=== PATIENT | male | born 1945 | race Caucasian/White ===

== ENCOUNTER 2021-02-19 16:33 | Inpatient (IN) ==
[2021-02-19] MEDS ORDERED: OPTIRAY 350 500ml IV ONE (17:10)
[2021-02-19 17:13] LABS: Basophils # (auto) 0.02 K/uL (0-0.2); Basophils % (auto) 0.2 %; Eosinophils # (auto) 0.01 K/uL (0-0.5); Eosinophils % (auto) 0.1 %; Hematocrit (blood only) 37.7 % (42-52); Hemoglobin 12.3 g/dL (14.0-18.0); Immature Granulocytes # (auto) 0.03 K/uL (0.00-0.02); Immature Granulocytes % (auto) 0.2 %; Lymphocytes # (auto) 1.64 K/uL (1.2-3.4); Lymphocytes % (auto) 13.7 %; Mean Corpuscular Hemoglobin 30.4 pg (25-34); Mean Corpuscular Hgb Conc 32.6 g/dL (32-36); Mean Corpuscular Volume 93.3 fL (80-100); Mean Platelet Volume 9.7 fL (7.4-10.4); Monocytes # (auto) 0.74 K/uL (0.11-0.59); Monocytes % (auto) 6.2 %; Neutrophils # (auto) 9.57 K/uL (1.4-6.5); Neutrophils % (auto) 79.6 %; Platelet Count 516 K/uL (130-400); RDW Standard Deviation 47.9 fL (36.4-46.3); Red Blood Count 4.04 M/uL (4.7-6.1); White Blood Count 12.01 K/uL (4.8-10.8)
--- NOTE | 2021-02-19 17:22 | Emergency Department Note ---
History of Present Illness General Chief complaint: Neuro Symptoms/Deficit Stated complaint: ABNORMAL EKG Time Seen by Provider: 02/19/21 16:53 Source: patient, family (Friend is at the bedside) and old records reviewed Mode of arrival: ambulatory Limitations: no limitations History of Present Illness Maximum Pain Intensity: 0 This patient is a 75-year-old male who comes in complaint of right hand weakness. Is from the wrist downward. He is a diabetic. This happened around 1130. He says his right hand is weak and numb. He has nothing else above the wrist and the elbow and shoulder are unremarkable. No weakness or numbness in the face or leg. No difficulty speaking or swallowing. No fall or trauma no chest pain or neck pain. He has had some chronic shortness of breath for the last several weeks for which he is on steroids. He had his Covid vaccines finished in November. He has had a cough but no fever. No history of anything like this before. His blood sugar has run on the high side given that he has been on steroids. He is from [place] and is in town for a meeting Home Medications Medication Instructions Recorded Confirmed Type albuterol sulfate 1 - 2 puff INHALATION Q4H PRN 02/19/21 02/19/21 History amoxicillin-pot clavulanate 1 tab PO BID 02/19/21 02/19/21 History [Augmentin] azithromycin 250 mg PO DAILY 02/19/21 02/19/21 History furosemide [Lasix] 40 mg PO DAILY 02/19/21 02/19/21 History insulin glargine [Lantus Solostar 40 unit SUBCUT QPM 02/19/21 02/19/21 History U-100 Insulin] lisinopril 40 mg PO DAILY 02/19/21 02/19/21 History metformin 1,000 mg PO BIDM 02/19/21 02/19/21 History pioglitazone [Actos] 15 mg PO DAILY 02/19/21 02/19/21 History prednisone See Rx Instructions .ROUTE .COMPLEX 02/19/21 02/19/21 History simvastatin 40 mg PO HS 02/19/21 02/19/21 History Allergies Allergy/AdvReac Type Severity Reaction Status Date / Time No Known Allergies Allergy Verified 02/19/21 17:40 Past Med/Surg History Social History Smoking Status: Never smoker Preferred Language: Guatemalan Feels Safe at Home: Yes Review of Systems A total of 10 systems reviewed and were otherwise negative Physical Exam Vital Signs Vital Signs - 24 hr 02/19/21 16:39 02/19/21 17:03 02/19/21 17:39 Temperature 36.3 C L Temperature Source Temporal Artery Scan Pulse Rate 112 H 110 H 107 H Pulse Rate from SpO2 Sensor 110 H 107 H Respiratory Rate 18 20 18 Respiratory Effort / Characteristics Non-Labored Respiratory Depth Normal Blood Pressure 116/71 122/74 128/81 Blood Pressure Mean 86 90 96 Pulse Oximetry 96 97 99 Oxygen Delivery Method Room Air Sepsis Recent Fever Within 48 Hours No Sepsis New/Unexplained Change in Mental Status No Sepsis Action Taken by Nursing No Action Required 02/19/21 17:40 02/19/21 17:45 02/19/21 17:50 Temperature Temperature Source Pulse Rate 106 H 105 H 106 H Pulse Rate from SpO2 Sensor 106 H 105 H 106 H Respiratory Rate 18 Respiratory Effort / Characteristics Respiratory Depth Blood Pressure 139/82 122/79 127/77 Blood Pressure Mean 101 93 93 Pulse Oximetry 98 99 98 Oxygen Delivery Method Sepsis Recent Fever Within 48 Hours Sepsis New/Unexplained Change in Mental Status Sepsis Action Taken by Nursing 02/19/21 17:55 02/19/21 18:00 02/19/21 18:05 Temperature Temperature Source Pulse Rate 107 H 106 H 105 H Pulse Rate from SpO2 Sensor 107 H 106 H 105 H Respiratory Rate Respiratory Effort / Characteristics Respiratory Depth Blood Pressure 99/75 L 127/75 95/73 L Blood Pressure Mean 83 92 80 Pulse Oximetry 97 97 97 Oxygen Delivery Method Sepsis Recent Fever Within 48 Hours Sepsis New/Unexplained Change in Mental Status Sepsis Action Taken by Nursing 02/19/21 18:30 02/19/21 18:34 02/19/21 18:40 Temperature Temperature Source Pulse Rate 102 H 103 H 101 H Pulse Rate from SpO2 Sensor Respiratory Rate 25 H 22 22 Respiratory Effort / Characteristics Respiratory Depth Blood Pressure 118/79 Blood Pressure Mean 92 Pulse Oximetry Oxygen Delivery Method Sepsis Recent Fever Within 48 Hours Sepsis New/Unexplained Change in Mental Status Sepsis Action Taken by Nursing 02/19/21 18:50 02/19/21 19:00 02/19/21 19:01 Temperature Temperature Source Pulse Rate 104 H 97 H 99 H Pulse Rate from SpO2 Sensor Respiratory Rate 22 18 19 Respiratory Effort / Characteristics Respiratory Depth Blood Pressure 108/68 Blood Pressure Mean 81 Pulse Oximetry Oxygen Delivery Method Sepsis Recent Fever Within 48 Hours Sepsis New/Unexplained Change in Mental Status Sepsis Action Taken by Nursing 02/19/21 19:10 02/19/21 19:20 02/19/21 19:30 Temperature Temperature Source Pulse Rate 94 H 93 H 95 H Pulse Rate from SpO2 Sensor Respiratory Rate 18 21 21 Respiratory Effort / Characteristics Respiratory Depth Blood Pressure 107/74 Blood Pressure Mean 85 Pulse Oximetry Oxygen Delivery Method Sepsis Recent Fever Within 48 Hours Sepsis New/Unexplained Change in Mental Status Sepsis Action Taken by Nursing 02/19/21 19:31 02/19/21 19:54 02/19/21 20:00 Temperature Temperature Source Pulse Rate 106 H 108 H 113 H Pulse Rate from SpO2 Sensor Respiratory Rate 25 H 13 18 Respiratory Effort / Characteristics Respiratory Depth Blood Pressure Blood Pressure Mean Pulse Oximetry Oxygen Delivery Method Sepsis Recent Fever Within 48 Hours Sepsis New/Unexplained Change in Mental Status Sepsis Action Taken by Nursing General: Well developed well nourished older male who appears in no acute distress, breathing comfortably on room air. Normal speech alert on x3, no facial asymmetry or droop HEENT: Normal cephalic atraumatic. Pupils are equal round and reactive to light. Extraocular movements are intact. Oropharynx is pink with moist mucous membranes. No swelling of the mouth lips or tongue. Neck: Supple with a midline trachea. No meningeal signs or stiffness, no JVD or bruits. No Stridor. Chest: Clear to auscultation bilaterally. No wheezes or rhonchi. No increased work of breathing. Heart: Regular rate and rhythm without murmurs or gallops. Abdomen: Soft nontender, nondistended without rebound guarding or rigidity. Extremities: No cyanosis clubbing or edema. No calf tenderness or assymetry Spine/Back. Non tender to palpation. No CVA tenderness Skin: Good turgor without rashes. Neurologic exam: Cranial nerves two through 12 are intact. 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 To lesser degree he has a hard time extending at the wrist but it is mostly the hand he is holding it somewhat clenched and is unable to extend the fingers as well. His hand is pink and well-perfused appearing with good capillary refill Course Administered Medications Discontinued Medications Aspirin (Aspirin 81 Mg Chew) 324 mg PO NOW STA Stop: 02/19/21 18:07 Last Admin: 02/19/21 18:26 Dose: 324 mg Documented by: [id number] Ioversol (Optiray 350 500ml) 120 ml IV ONCE ONE Stop: 02/19/21 17:11 Last Admin: 02/19/21 17:10 Dose: 120 ml Documented by: [id number] Medical Decision Making Differential Diagnosis CVA, peripheral neuropathy, diabetic complication, cardiac disease, electrolyte or metabolic abnormality Medical Records Attestation: I reviewed the patient's medical records. Home Medications Current Medication List: was personally reviewed by me Laboratory Data Attestation: I reviewed the patient's lab results. Result diagrams: 02/19/21 17:05 02/19/21 17:05 Lab Results 02/19/21 02/19/21 02/19/21 Range/Units 17:05 17:05 17:05 WBC 12.01 H (4.8-10.8) K/uL RBC 4.04 L (4.7-6.1) M/uL Hgb 12.3 L (14.0-18.0) g/dL Hct 37.7 L (42-52) % MCV 93.3 (80-100) fL MCH 30.4 (25-34) pg MCHC 32.6 (32-36) g/dL RDW Std Deviation 47.9 H (36.4-46.3) fL RDW Coeff of Fabian 14.0 (11.5-14.5) % Plt Count 516 H (130-400) K/uL MPV 9.7 (7.4-10.4) fL Immature Gran % (Auto) 0.2 % Neut % (Auto) 79.6 % Lymph % (Auto) 13.7 % Davis % (Auto) 6.2 % Eos % (Auto) 0.1 % Baso % (Auto) 0.2 % Neut # (Auto) 9.57 H (1.4-6.5) K/uL Lymph # (Auto) 1.64 (1.2-3.4) K/uL Davis # (Auto) 0.74 H (0.11-0.59) K/uL Eos # (Auto) 0.01 (0-0.5) K/uL Baso # (Auto) 0.02 (0-0.2) K/uL Immature Gran # (Auto) 0.03 H (0.00-0.02) K/uL PT 10.9 (9.0-12.0) Seconds INR 1.1 (0.9-1.1) APTT 23.7 (21.0-31.0) Seconds PTT Ratio 0.9 Sodium 138 (136-145) mmol/L Potassium 4.5 (3.5-5.1) mmol/L Chloride 108 H (98-107) mmol/L Carbon Dioxide 22 (21-32) mmol/L Anion Gap 8.0 (3-11) BUN 48 H (7-18) mg/dl Creatinine 1.80 H (0.6-1.4) mg/dl Est Cr Clr Drug Dosing 45.6 ml/min Est GFR ( Amer) 42.0 ml/min Est GFR (Non-Af Amer) 36.3 ml/min BUN/Creatinine Ratio 26.6 H (10-20) Glucose 168 H (70-99) mg/dl POC Glucose (70-99) mg/dl Calcium 9.3 (8.5-10.1) mg/dl Magnesium 2.0 (1.8-2.4) mg/dl Total Bilirubin 0.4 (0.2-1) mg/dl AST 27 (15-37) U/L ALT 51 (12-78) U/L Alkaline Phosphatase 106 (45-117) U/L Troponin I 0.255 H* (0-0.045) ng/ml Total Protein 7.5 (6.4-8.2) gm/dl Albumin 3.4 (3.4-5.0) gm/dl Globulin 4.1 H (2.5-4.0) gm/dl Albumin/Globulin Ratio 0.8 L (0.9-2) COVID-19 Eval Order SARS-CoV-2 (PCR) (Negative) 02/19/21 02/19/21 02/19/21 Range/Units 17:31 17:35 17:35 WBC (4.8-10.8) K/uL RBC (4.7-6.1) M/uL Hgb (14.0-18.0) g/dL Hct (42-52) % MCV (80-100) fL MCH (25-34) pg MCHC (32-36) g/dL RDW Std Deviation (36.4-46.3) fL RDW Coeff of Fabian (11.5-14.5) % Plt Count (130-400) K/uL MPV (7.4-10.4) fL Immature Gran % (Auto) % Neut % (Auto) % Lymph % (Auto) % Davis % (Auto) % Eos % (Auto) % Baso % (Auto) % Neut # (Auto) (1.4-6.5) K/uL Lymph # (Auto) (1.2-3.4) K/uL Davis # (Auto) (0.11-0.59) K/uL Eos # (Auto) (0-0.5) K/uL Baso # (Auto) (0-0.2) K/uL Immature Gran # (Auto) (0.00-0.02) K/uL PT (9.0-12.0) Seconds INR (0.9-1.1) APTT (21.0-31.0) Seconds PTT Ratio Sodium (136-145) mmol/L Potassium (3.5-5.1) mmol/L Chloride (98-107) mmol/L Carbon Dioxide (21-32) mmol/L Anion Gap (3-11) BUN (7-18) mg/dl Creatinine (0.6-1.4) mg/dl Est Cr Clr Drug Dosing ml/min Est GFR ( Amer) ml/min Est GFR (Non-Af Amer) ml/min BUN/Creatinine Ratio (10-20) Glucose (70-99) mg/dl POC Glucose 148 H (70-99) mg/dl Calcium (8.5-10.1) mg/dl Magnesium (1.8-2.4) mg/dl Total Bilirubin (0.2-1) mg/dl AST (15-37) U/L ALT (12-78) U/L Alkaline Phosphatase (45-117) U/L Troponin I (0-0.045) ng/ml Total Protein (6.4-8.2) gm/dl Albumin (3.4-5.0) gm/dl Globulin (2.5-4.0) gm/dl Albumin/Globulin Ratio (0.9-2) COVID-19 Eval Order Covid19 at [facility] SARS-CoV-2 (PCR) NEGATIVE (Negative) Imaging Data Radiologist's Impression: Head CT 02/19/21 17:[address] DOSE: HISTORY: Stroke Like Symptoms TECHNIQUE: Multiaxial CT images of the head were performed without the use of intravenous contrast. Automated exposure control was utilized for this study. A dose lowering technique was utilized adhering to the principles of ALARA. Comparison: None. Findings: The paranasal sinuses and mastoid air cells are clear. The calvarium and skull base are intact. There is no mass, hematoma, midline shift, acute infarct. White matter hypodensity is nonspecific but suggestive of microvascular ischemic change. The ventricles and sulci demonstrate mild age-related involutional changes. Impression: No acute intracranial abnormality. Atrophy and microvascular ischemic changes. ACT 112: Negative or not required by law. Electronically signed by: Casimiro Soto M.D. 02/19/2021 5:30 PM Head CTA 02/19/21 17:04 HEAD & NECK CTA HISTORY: Stroke Like Symptoms TECHNIQUE: Multiaxial CT images of the head were performed following the intravenous administration of contrast to evaluate the major cerebral vessels. Multiaxial CT images of the neck were also performed following the intravenous administration of contrast to evaluate the major cervical vessels. Maximum intensity projection images were also obtained. A dose lowering technique was utilized adhering to the principles of ALARA. COMPARISON: None. FINDINGS: Moderate calcified plaque within the bilateral distal vertebral arteries resolving and mild stenosis within the distal left vertebral artery and severe stenosis within the distal right vertebral artery. The basilar artery is widely patent. Mild stenosis within the right supraclinoid ICA due to the focal calcified plaque. No significant stenosis within the left intracranial ICA. The bilateral ACAs, MCAs, laborer landscape show no significant stenosis, occlusion, or aneurysm. The major dural venous sinuses appear patent. The aortic arch and proximal great vessels are widely patent. There is no significant stenosis, occlusion, or dissection identified within the bilateral common carotid, internal carotid, or vertebral arteries. Mild interlobular septal thickening and small patchy groundglass airspace opacities most pronounced within the right upper lobe. There are also small to moderate bilateral pleural effusions. This favors pulmonary edema. Groundglass airspace opacities, also be seen in the setting of a viral process. IMPRESSION: 1. No significant stenosis, occlusion, or aneurysm within the bilateral ACAs, MC As, or laborer landscape. 2. Mild stenosis within the right supraclinoid ICA due to the calcified plaque. 3. Focal severe stenosis within the distal right vertebral artery due to the calcified plaque and focal mild stenosis within the distal left vertebral artery. 4. No significant stenosis, occlusion, or dissection within the bilateral common carotid or internal carotid arteries. ACT 112: Negative or not required by law. Electronically signed by: Casimiro Soto M.D. 02/19/2021 5:28 PM Neck CTA 02/19/21 17:04 HEAD & NECK CTA HISTORY: Stroke Like Symptoms TECHNIQUE: Multiaxial CT images of the head were performed following the intravenous administration of contrast to evaluate the major cerebral vessels. Multiaxial CT images of the neck were also performed following the intravenous administration of contrast to evaluate the major cervical vessels. Maximum intensity projection images were also obtained. A dose lowering technique was utilized adhering to the principles of ALARA. COMPARISON: None. FINDINGS: Moderate calcified plaque within the bilateral distal vertebral arteries resolving and mild stenosis within the distal left vertebral artery and severe stenosis within the distal right vertebral artery. The basilar artery is widely patent. Mild stenosis within the right supraclinoid ICA due to the focal calcified plaque. No significant stenosis within the left intracranial ICA. The bilateral ACAs, MCAs, laborer landscape show no significant stenosis, occlusion, or aneurysm. The major dural venous sinuses appear patent. The aortic arch and proximal great vessels are widely patent. There is no significant stenosis, occlusion, or dissection identified within the bilateral common carotid, internal carotid, or vertebral arteries. Mild interlobular septal thickening and small patchy groundglass airspace opacities most pronounced within the right upper lobe. There are also small to moderate bilateral pleural effusions. This favors pulmonary edema. Groundglass airspace opacities, also be seen in the setting of a viral process. IMPRESSION: 1. No significant stenosis, occlusion, or aneurysm within the bilateral ACAs, MCAs, or laborer landscape. 2. Mild stenosis within the right supraclinoid ICA due to the calcified plaque. 3. Focal severe stenosis within the distal right vertebral artery due to the calcified plaque and focal mild stenosis within the distal left vertebral artery. 4. No significant stenosis, occlusion, or dissection within the bilateral common carotid or internal carotid arteries. ACT 112: Negative or not required by law. Electronically signed by: Casimiro Soto M.D. 02/19/2021 5:28 PM ECG Data Attestation: I personally reviewed and interpreted this ECG as follows: Indication: + weakness Rate (beats per minute): 113 Rhythm: + sinus tachycardia ECG [place]: + Normal ECG ST segments: + Nonspecific ST abnormalities (Nonspecific ST and T wave abnormalities.) ECG Findings: no PACs and no PVCs Comparison ECG Date: from (EKG done at [facility]) Change: no significant change MDM Narrative This patient comes in after weakness in his right hand. This occurred at 1130. He has a hard time squeezing and to lesser degree extending the wrist. No injury. He was seen at [facility] and referred here. When I saw him he was outside of the TPA or extended TPA window but I did call a stroke alert in the event that he would have a large vessel occlusion although I thought that was u nlikely. His only symptom is the hand. he has no chest pain or shortness of breath. no trauma. Does have history of diabetes. CAT scan of the head was unremarkable. CT of the head and neck does show a significant stenosis of the vertebral artery but I do not think is likely causing his symptoms. I did talk to Dr. Hollingsworth twice about this patient, she is a stroke neurologist. She agrees with admitting the patient and she does not feel there is any interventional process at this point that her she would offer. The patient was given aspirin. His EKG does not show any definite ischemic changes but his troponin is mildly elevated and this would be another reason to keep him again he has no chest pain. I have consulted the [facility] hospitalist to see him in ER for these measures. The patient will need further evaluation including MRI to further determine if this is a stroke or potentially peripheral neuropathy. Continuous cardiac monitoring: Order was placed in EMR for continuous cardiac monitoring. The patient was noted to be in normal sinus rhythm with a rate of 75 upon my interpretation. Impression & Plan Cerebrovascular accident, Right hand weakness, Elevated troponin, Lab test negative for COVID-19 virus Discharge Plan Visit Data Chief Complaint: Neuro Symptoms/Deficit Stated Complaint: ABNORMAL EKG ED Provider: Louis Gregory Discharge Problem: Cerebrovascular accident, Right hand weakness, Elevated troponin, Lab test negative for COVID-19 virus Patient Disposition: Admitted As Inpatient Discharge Instructions Interventions: ED Discharge Assessment Last Done: 06/03/21 21:37 Discharge Problem: Cerebrovascular accident Qualifiers: CVA mechanism: unspecified Qualified Code(s): I63.9 - Cerebral infarction, unspecified
[2021-02-19 17:23] LABS: INR 1.1 (0.9-1.1); Partial Thromboplastin Ratio 0.9; Partial Thromboplastin Time 23.7 Seconds (21.0-31.0); Prothrombin Time 10.9 Seconds (9.0-12.0)
--- NOTE | 2021-02-19 17:29 | CT Scan Report ---
HEAD & NECK CTA HISTORY: Stroke Like Symptoms TECHNIQUE: Multiaxial CT images of the head were performed following the intravenous administration o f contrast to evaluate the major cerebral vessels. Multiaxial CT images of the neck were also perform ed following the intravenous administration of contrast to evaluate the major cervical vessels. Maxim um intensity projection images were also obtained. A dose lowering technique was utilized adhering to the principles of ALARA. COMPARISON: None. FINDINGS: Moderate calcified plaque within the bilateral distal vertebral arteries resolving and mild stenosis within the distal left vertebral artery and severe stenosis within the distal right vertebral artery. The basilar artery is widely patent. Mild stenosis within the right supraclinoid ICA due to the foca l calcified plaque. No significant stenosis within the left intracranial ICA. The bilateral ACAs, MCA s, weatherstrip machine operator show no significant stenosis, occlusion, or aneurysm. The major dural venous sinuses appear p atent. The aortic arch and proximal great vessels are widely patent. There is no significant stenosis, occ lusion, or dissection identified within the bilateral common carotid, internal carotid, or vertebral arteries. Mild interlobular septal thickening and small patchy groundglass airspace opacities most pr onounced within the right upper lobe. There are also small to moderate bilateral pleural effusions. T his favors pulmonary edema. Groundglass airspace opacities, also be seen in the setting of a viral pr ocess. IMPRESSION: 1. No significant stenosis, occlusion, or aneurysm within the bilateral ACAs, MCAs, or weatherstrip machine operator. 2. Mild stenosis within the right supraclinoid ICA due to the calcified plaque. 3. Focal severe stenosis within the distal right vertebral artery due to the calcified plaque and foc al mild stenosis within the distal left vertebral artery. 4. No significant stenosis, occlusion, or dissection within the bilateral common carotid or internal carotid arteries. ACT 112: Negative or not required by law. Electronically signed by: Casimiro Soto M.D. 02/19/2021 5:28 PM
--- NOTE | 2021-02-19 17:29 | CT Scan Report ---
HEAD & NECK CTA HISTORY: Stroke Like Symptoms TECHNIQUE: Multiaxial CT images of the head were performed following the intravenous administration o f contrast to evaluate the major cerebral vessels. Multiaxial CT images of the neck were also perform ed following the intravenous administration of contrast to evaluate the major cervical vessels. Maxim um intensity projection images were also obtained. A dose lowering technique was utilized adhering to the principles of ALARA. COMPARISON: None. FINDINGS: Moderate calcified plaque within the bilateral distal vertebral arteries resolving and mild stenosis within the distal left vertebral artery and severe stenosis within the distal right vertebral artery. The basilar artery is widely patent. Mild stenosis within the right supraclinoid ICA due to the foca l calcified plaque. No significant stenosis within the left intracranial ICA. The bilateral ACAs, MCA s, blacktop paver operator show no significant stenosis, occlusion, or aneurysm. The major dural venous sinuses appear p atent. The aortic arch and proximal great vessels are widely patent. There is no significant stenosis, occ lusion, or dissection identified within the bilateral common carotid, internal carotid, or vertebral arteries. Mild interlobular septal thickening and small patchy groundglass airspace opacities most pr onounced within the right upper lobe. There are also small to moderate bilateral pleural effusions. T his favors pulmonary edema. Groundglass airspace opacities, also be seen in the setting of a viral pr ocess. IMPRESSION: 1. No significant stenosis, occlusion, or aneurysm within the bilateral ACAs, MCAs, or blacktop paver operator. 2. Mild stenosis within the right supraclinoid ICA due to the calcified plaque. 3. Focal severe stenosis within the distal right vertebral artery due to the calcified plaque and foc al mild stenosis within the distal left vertebral artery. 4. No significant stenosis, occlusion, or dissection within the bilateral common carotid or internal carotid arteries. ACT 112: Negative or not required by law. Electronically signed by: Casimiro Soto M.D. 02/19/2021 5:28 PM
--- NOTE | 2021-02-19 17:31 | CT Scan Report ---
HEAD CT NONCONTRAST CT DOSE: HISTORY: Stroke Like Symptoms TECHNIQUE: Multiaxial CT images of the head were performed without the use of intravenous contrast. A utomated exposure control was utilized for this study. A dose lowering technique was utilized adheri ng to the principles of ALARA. Comparison: None. Findings: The paranasal sinuses and mastoid air cells are clear. The calvarium and skull base are int act. There is no mass, hematoma, midline shift, acute infarct. White matter hypodensity is nonspecifi c but suggestive of microvascular ischemic change. The ventricles and sulci demonstrate mild age-rela carolyn involutional changes. Impression: No acute intracranial abnormality. Atrophy and microvascular ischemic changes. ACT 112: Negative or not required by law. Electronically signed by: Casimiro Soto M.D. 02/19/2021 5:30 PM
[2021-02-19 17:42] LABS: Albumin Level 3.4 gm/dl (3.4-5.0); BUN Creatinine Ratio 26.6 (10-20); Calcium 9.3 mg/dl (8.5-10.1); Creatinine Clr Calc Pharmacy 45.6 ml/min; Est GFR (Non-African American) 36.3 ml/min; Potassium 4.5 mmol/L (3.5-5.1)
[2021-02-19] MEDS ORDERED: ASPIRIN 81 MG CHEW PO STA (18:06)
[2021-02-19 18:20] LABS: Albumin Globulin Ratio 0.8 (0.9-2); Bilirubin,Total 0.4 mg/dl (0.2-1); Globulin 4.1 gm/dl (2.5-4.0); Total Protein 7.5 gm/dl (6.4-8.2); Troponin I 0.255 ng/ml (0-0.045)
--- NOTE | 2021-02-19 20:10 | History & Physical Report ---
Date of Service February 19, 2021 Assessment & Plan (1) Right hand weakness: 75yo right handed male with history of DM and HTN presenting with weakness of right hand first noticed today at 11:00. No additional neurological complaints. Ddx to include TIA/CVA, peripheral radiculopathy. Imaging thus far with negative CT head, mild stenosis of the right supraclinoid ICA, focal severe stenosis of the right vertebral artery. -Admit to medical with telemetry -NIHSS, Neuro checks per protocol -Check MRI brain -Check 2D echo -Arterial US of RUE - right hand feels cool with slightly diminished pulses -Check Lipid profile and A1C with AM labs -ASA 81mg po daily -Simvastatin 40mg po qHS -PT/OT evaluation appreciated -Neurology consultation appreciated Present on Admission?: Yes (2) Diabetes: Patient with DM. Blood sugar is 168 at present -Check Hgb A1C -Lantus 10u BID -ISS -Goal blood sugar 100 - 140 Present on Admission?: Yes (3) Elevated troponin: Patient with no complaint of chest pain. Troponin = 0.255. EKG with nonspecific ST changes -Telemetry monitoring -ASA and Simvastatin as above -Trend troponin -If uptrending will consider heparin gtt, echo, Cardiology consultation Present on Admission?: Yes (4) Shortness of breath: Patient is on antibiotics as well as albuterol and steroid taper per PCP -Obtain records from PCP -Continue Augmentin/Azithromycin -Continue Prednisone taper -Albuterol PRN F/E/N - Heplock. Monitor electrolytes. CC/AHA diet as tolerated Ppx - SCDs Code - Full Dispo - Admit to medical with telemetry Present on Admission?: Yes History of Present Illness Chief Complaint: right hand numbness/tingling Primary Care Provider: JESSY CARDONA Jorge Luis Hernandez is a 75yo male with history of DM presenting with numbness/tingling and poor coordination of his right hand. Patient is from [place] and is currently in [place] for a meeting. He was driving with a friend from [place] and stopped in [place] to eat and noted that he was unable to open the car door due to his right hand feeling numb/tingling and clumsy. He denies pain, LEE, visual disturbance, speech difficulty. No additional focal neurological complaints. He denies pain in the neck or arm. He denies sleeping on his hand/arm or poor positioning that may lead to a radiculopathy. Patient was recently seen by his PCP for complaint of shortness of breath and decreased exercise tolerance. He was given Albuterol inhaler, Steroid taper, an tibiotics and decongestant. He states that he has had a cough productive for clear phlegm as well as occasional wheezing. He has a rash on his legs which occurs with heat. Otherwise patient without complaint. ER Course: ASA 324mg Allergies Allergy/AdvReac Type Severity Reaction Status Date / Time No Known Allergies Allergy Verified 02/19/21 17:40 Home Medications Medication Instructions Recorded Confirmed Type albuterol sulfate 1 - 2 puff INHALATION Q4H PRN 02/19/21 02/19/21 History amoxicillin-pot clavulanate 1 tab PO BID 02/19/21 02/19/21 History [Augmentin] azithromycin 250 mg PO DAILY 02/19/21 02/19/21 History furosemide [Lasix] 40 mg PO DAILY 02/19/21 02/19/21 History insulin glargine [Lantus Solostar 40 unit SUBCUT QPM 02/19/21 02/19/21 History U-100 Insulin] lisinopril 40 mg PO DAILY 02/19/21 02/19/21 History metformin 1,000 mg PO BIDM 02/19/21 02/19/21 History pioglitazone [Actos] 15 mg PO DAILY 02/19/21 02/19/21 History prednisone See Rx Instructions .ROUTE .COMPLEX 02/19/21 02/19/21 History simvastatin 40 mg PO HS 02/19/21 02/19/21 History Past Med/Surg History Medical History (Updated 02/19/21 @ 23:53 by Claribel Corea DO) Diabetes Hypertension Surgical History (Updated 02/19/21 @ 23:30 by Claribel Corea DO) History of abdominal surgery Family History (Updated 02/19/21 @ 23:30 by Claribel Corea DO) Other Cancer Social History (Updated 02/19/21 @ 23:31 by Claribel Corea DO) Smoking Status: Never smoker Smoking End Date: 12 years ago; Hx Alcohol Use: Yes Alcohol type: beer Alcohol Intake Frequency: Monthly or Less Hx Substance Use: No Preferred Language: Turkish Communication Ability: Effective 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 Beliefs That Will Affect Care: None Current Living Situation: Spouse Feels Safe at Home: Yes Safety Concerns: Feels Safe At This Time Assistive Devices: Denture - Upper and Denture - Lower Review of Systems Review of Systems: All systems reviewed & are unremarkable except as noted in HPI & below Physical Exam Physical Exam: General: patient resting comfortably, NAD, non-toxic in appearance, AA&O x 4 Skin: warm, dry, intact, well circumscribed red lesion on LLE, nontender HEENT: NC/AT, PERRL, EOMI, anicteric sclera, conjunctiva without injection, external ear normal to inspection and nontender, nares patent, moist mucus membranes, dentition intact, no oropharyngeal lesions, neck supple, trachea midline, no LAD, no thyromegaly, no JVD Heart: +S1/S2, regular, no m/r/g Lungs: equal air entry bilaterally, no rales/rhonchi/wheezes Abd: +BS, soft, NT/ND, no masses/organomegaly/ascites Ext: warm, right hand is cool, radial pulse is slightly diminished, 2+ pulses in UE/LE bilaterally, no clubbing/cyanosis, 2+ edema of bilateral LE Neuro: AA&O x 4, CN II - XII intact, speech intact, no facial droop, sensation to light touch intact in UE/LE bilaterally, moving all extremities on command with equal strength 5/5 with exception of right hand - weakness with flexion and extension of wrist, 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, diminished coordination, diminished strength with finger abduction/adduction Results & Data Results & Data ([facility]) Vital Signs (Past 12 Hours) Vital Signs Temp Pulse Resp BP Pulse Ox 02/19/21 19:54 108 H 13 02/19/21 19:31 106 H 25 H 02/19/21 19:30 95 H 21 107/74 02/19/21 19:20 93 H 21 02/19/21 19:10 94 H 18 02/19/21 19:01 99 H 19 02/19/21 19:00 97 H 18 108/68 02/19/21 18:50 104 H 22 02/19/21 18:40 101 H 22 02/19/21 18:34 103 H 22 02/19/21 18:30 102 H 25 H 118/79 02/19/21 18:05 105 H 95/73 L 97 02/19/21 18:00 106 H 127/75 97 02/19/21 17:55 107 H 99/75 L 97 02/19/21 17:50 106 H 127/77 98 02/19/21 17:45 105 H 122/79 99 02/19/21 17:40 106 H 18 139/82 98 02/19/21 17:39 107 H 18 128/81 99 02/19/21 17:03 110 H 20 122/74 97 02/19/21 16:39 36.3 C L 112 H 18 116/71 96 Laboratory Results Laboratory Results WBC 12.01 K/uL (4.8-10.8) H 02/19/21 17:05 RBC 4.04 M/uL (4.7-6.1) L 02/19/21 17:05 Hgb 12.3 g/dL (14.0-18.0) L 02/19/21 17:05 Hct 37.7 % (42-52) L 02/19/21 17:05 MCV 93.3 fL (80-100) 02/19/21 17:05 MCH 30.4 pg (25-34) 02/19/21 17:05 MCHC 32.6 g/dL (32-36) 02/19/21 17:05 RDW Std Deviation 47.9 fL (36.4-46.3) H 02/19/21 17:05 RDW Coeff of Fabian 14.0 % (11.5-14.5) 02/19/21 17:05 Plt Count 516 K/uL (130-400) H 02/19/21 17:05 MPV 9.7 fL (7.4-10.4) 02/19/21 17:05 Immature Gran % (Auto) 0.2 % 02/19/21 17:05 Neut % (Auto) 79.6 % 02/19/21 17:05 Lymph % (Auto) 13.7 % 02/19/21 17:05 Lee % (Auto) 6.2 % 02/19/21 17:05 Eos % (Auto) 0.1 % 02/19/21 17:05 Baso % (Auto) 0.2 % 02/19/21 17:05 Neut # (Auto) 9.57 K/uL (1.4-6.5) H 02/19/21 17:05 Lymph # (Auto) 1.64 K/uL (1.2-3.4) 02/19/21 17:05 Lee # (Auto) 0.74 K/uL (0.11-0.59) H 02/19/21 17:05 Eos # (Auto) 0.01 K/uL (0-0.5) 02/19/21 17:05 Baso # (Auto) 0.02 K/uL (0-0.2) 02/19/21 17:05 Immature Gran # (Auto) 0.03 K/uL (0.00-0.02) H 02/19/21 17:05 PT 10.9 Seconds (9.0-12.0) 02/19/21 17:05 INR 1.1 (0.9-1.1) 02/19/21 17:05 APTT 23.7 Seconds (21.0-31.0) 02/19/21 17:05 PTT Ratio 0.9 02/19/21 17:05 Sodium 138 mmol/L (136-145) 02/19/21 17:05 Potassium 4.5 mmol/L (3.5-5.1) 02/19/21 17:05 Chloride 108 mmol/L (98-107) H 02/19/21 17:05 Carbon Dioxide 22 mmol/L (21-32) 02/19/21 17:05 Anion Gap 8.0 (3-11) 02/19/21 17:05 BUN 48 mg/dl (7-18) H 02/19/21 17:05 Creatinine 1.80 mg/dl (0.6-1.4) H 02/19/21 17:05 Est Cr Clr Drug Dosing 45.6 ml/min 02/19/21 17:05 Est GFR ( Amer) 42.0 ml/min 02/19/21 17:05 Est GFR (Non-Af Amer) 36.3 ml/min 02/19/21 17:05 BUN/Creatinine Ratio 26.6 (10-20) H 02/19/21 17:05 Glucose 168 mg/dl (70-99) H 02/19/21 17:05 POC Glucose 148 mg/dl (70-99) H 02/19/21 17:31 Calcium 9.3 mg/dl (8.5-10.1) 02/19/21 17:05 Magnesium 2.0 mg/dl (1.8-2.4) 02/19/21 17:05 Total Bilirubin 0.4 mg/dl (0.2-1) 02/19/21 17:05 AST 27 U/L (15-37) 02/19/21 17:05 ALT 51 U/L (12-78) 02/19/21 17:05 Alkaline Phosphatase 106 U/L (45-117) 02/19/21 17:05 Troponin I 0.255 ng/ml (0-0.045) H* 02/19/21 17:05 Total Protein 7.5 gm/dl (6.4-8.2) 02/19/21 17:05 Albumin 3.4 gm/dl (3.4-5.0) 02/19/21 17:05 Globulin 4.1 gm/dl (2.5-4.0) H 02/19/21 17:05 Albumin/Globulin Ratio 0.8 (0.9-2) L 02/19/21 17:05 COVID-19 Eval Order Covid19 at [facility] 02/19/21 17:35 SARS-CoV-2 (PCR) NEGATIVE (Negative) 02/19/21 17:[address] 02/19/21 17:[address] DOSE: HISTORY: Stroke Like Symptoms TECHNIQUE: Multiaxial CT images of the head were performed without the use of intravenous contrast. Automated exposure control was utilized for this study. A dose lowering technique was utilized adhering to the principles of ALARA. Comparison: None. Findings: The paranasal sinuses and mastoid air cells are clear. The calvarium and skull base are intact. There is no mass, hematoma, midline shift, acute infarct. White matter hypodensity is nonspecific but suggestive of microvascular ischemic change. The ventricles and sulci demonstrate mild age-related involutional changes. Impression: No acute intracranial abnormality. Atrophy and microvascular ischemic changes. ACT 112: Negative or not required by law. Electronically signed by: Casimiro Soto M.D. 02/19/2021 5:30 PM Head CTA 02/19/21 17:04 HEAD & NECK CTA HISTORY: Stroke Like Symptoms TECHNIQUE: Multiaxial CT images of the head were performed following the intravenous administration of contrast to evaluate the major cerebral vessels. Multiaxial CT images of the neck were also performed following the intravenous administration of contrast to evaluate the major cervical vessels. Maximum intensity projection images were also obtained. A dose lowering technique was utilized adhering to the principles of ALARA. COMPARISON: None. FINDINGS: Moderate calcified plaque within the bilateral distal vertebral arteries reso lving and mild stenosis within the distal left vertebral artery and severe stenosis within the distal right vertebral artery. The basilar artery is widely patent. Mild stenosis within the right supraclinoid ICA due to the focal calcified plaque. No significant stenosis within the left intracranial ICA. The bilateral ACAs, MCAs, power and recovery supervisor show no significant stenosis, occlusion, or aneurysm. The major dural venous sinuses appear patent. The aortic arch and proximal great vessels are widely patent. There is no significant stenosis, occlusion, or dissection identified within the bilateral common carotid, internal carotid, or vertebral arteries. Mild interlobular septal thickening and small patchy groundglass airspace opacities most pronounced within the right upper lobe. There are also small to moderate bilateral pleural effusions. This favors pulmonary edema. Groundglass airspace opacities, also be seen in the setting of a viral process. IMPRESSION: 1. No significant stenosis, occlusion, or aneurysm within the bilateral ACAs, MCAs, or power and recovery supervisor. 2. Mild stenosis within the right supraclinoid ICA due to the calcified plaque. 3. Focal severe stenosis within the distal right vertebral artery due to the calcified plaque and focal mild stenosis within the distal left vertebral artery. 4. No significant stenosis, occlusion, or dissection within the bilateral common carotid or internal carotid arteries. ACT 112: Negative or not required by law. Electronically signed by: Casimiro Soto M.D. 02/19/2021 5:28 PM Neck CTA 02/19/21 17:04 HEAD & NECK CTA HISTORY: Stroke Like Symptoms TECHNIQUE: Multiaxial CT images of the head were performed following the intravenous administration of contrast to evaluate the major cerebral vessels. Multiaxial CT images of the neck were also performed following the intravenous administration of contrast to evaluate the major cervical vessels. Maximum intensity projection images were also obtained. A dose lowering technique was utilized adhering to the principles of ALARA. COMPARISON: None. FINDINGS: Moderate calcified plaque within the bilateral distal vertebral arteries resolving and mild stenosis within the distal left vertebral artery and severe stenosis within the distal right vertebral artery. The basilar artery is widely patent. Mild stenosis within the right supraclinoid ICA due to the focal calcified plaque. No significant stenosis within the left intracranial ICA. The bilateral ACAs, MCAs, power and recovery supervisor show no significant stenosis, occlusion, or aneurysm. The major dural venous sinuses appear patent. The aortic arch and proximal great vessels are widely patent. There is no significant stenosis, occlusion, or dissection identified within the bilateral common carotid, internal carotid, or vertebral arteries. Mild interlobular septal thickening and small patchy groundglass airspace opacities most pronounced within the right upper lobe. There are also small to moderate bila teral pleural effusions. This favors pulmonary edema. Groundglass airspace opacities, also be seen in the setting of a viral process. IMPRESSION: 1. No significant stenosis, occlusion, or aneurysm within the bilateral ACAs, MCAs, or power and recovery supervisor. 2. Mild stenosis within the right supraclinoid ICA due to the calcified plaque. 3. Focal severe stenosis within the distal right vertebral artery due to the calcified plaque and focal mild stenosis within the distal left vertebral artery. 4. No significant stenosis, occlusion, or dissection within the bilateral common carotid or internal carotid arteries. ACT 112: Negative or not required by law. Electronically signed by: Casimiro Soto M.D. 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
[2021-02-19] MEDS ORDERED: GLUCAGON FOR INJ 1 MG VIAL SQ PRN (21:59)
[2021-02-19] MEDS ORDERED: GLUCOSE 40% GEL 15 GM TUBE PO PRN (21:59)
[2021-02-19] MEDS ORDERED: ACETAMINOPHEN 325 MG TAB PO PRN (21:59)
[2021-02-19] MEDS ORDERED: CARBOHYDRATES FOR HYPOGLYCEMIA PO PRN (21:59)
[2021-02-19] MEDS ORDERED: DEXTROSE 50% 50 ML SYRINGE IV PRN (21:59)
[2021-02-19] MEDS ORDERED: ONDANSETRON INJ 2 MG/ML 2 ML VIAL IV PRN (21:59)
[2021-02-19] MEDS ORDERED: GLUCOSE 10 TABS/TUBE PO PRN (21:59)
[2021-02-19] MEDS ORDERED: ALBUTEROL HFA 8 GM INHALER INH PRN (21:59)
[2021-02-20] MEDS: INSULIN GLARGINE SOLOSTAR 100 UNITS/ML 3 ML PEN SC SCH ×3 (00:28→21:05)
[2021-02-20] MEDS: INSULIN ASPART 100 UNITS/ML 3 ML PEN SC SCH ×5 (00:28→21:04)
[2021-02-20] MEDS: SIMVASTATIN 40 MG TAB PO SCH ×2 (00:29→20:54)
[2021-02-20 06:08] LABS: Basophils # (auto) 0.05 K/uL (0-0.2); Basophils % (auto) 0.5 %; Eosinophils # (auto) 0.05 K/uL (0-0.5); Eosinophils % (auto) 0.5 %; Hematocrit (blood only) 37.5 % (42-52); Immature Granulocytes # (auto) 0.01 K/uL (0.00-0.02); Immature Granulocytes % (auto) 0.1 %; Lymphocytes # (auto) 2.58 K/uL (1.2-3.4); Lymphocytes % (auto) 26.5 %; Mean Corpuscular Hemoglobin 30.8 pg (25-34); Mean Corpuscular Volume 96.2 fL (80-100); Mean Platelet Volume 9.5 fL (7.4-10.4); Monocytes # (auto) 0.63 K/uL (0.11-0.59); Monocytes % (auto) 6.5 %; Neutrophils # (auto) 6.43 K/uL (1.4-6.5); Neutrophils % (auto) 65.9 %; Platelet Count 492 K/uL (130-400); RDW Coefficient of Variation 14.1 % (11.5-14.5); RDW Standard Deviation 49.4 fL (36.4-46.3); White Blood Count 9.75 K/uL (4.8-10.8)
[2021-02-20 06:38] LABS: BUN Creatinine Ratio 24.7 (10-20); Calcium 8.6 mg/dl (8.5-10.1); Creatinine Clr Calc Pharmacy 53.3 ml/min; Est GFR (African American) 50.8 ml/min; Est GFR (Non-African American) 43.8 ml/min; Potassium 4.3 mmol/L (3.5-5.1)
--- NOTE | 2021-02-20 07:53 | Electrocardiogram Report ---
Test Reason : Blood Pressure : / mmHG Vent. Rate : 113 BPM Atrial Rate : 113 BPM P-R Int : 152 ms QRS Dur : 102 ms QT Int : 330 ms P-R-T Axes : 056 049 156 degrees QTc Int : 452 ms Sinus tachycardia Left atrial enlargement Abnormal ECG No previous ECGs available Confirmed by Aamir Mckenzie ([id number]) on 02/20/2021 7:53:24 AM Referred By: REFERRED SELF Confirmed By:Aamir Mckenzie
[2021-02-20] MEDS ORDERED: AMOXICILLIN/CLAVULANATE 875 MG TAB PO SCH (08:00)
[2021-02-20] MEDS ORDERED: predniSONE 10 MG TABLET PO SCH (08:00)
[2021-02-20 08:15] LABS: Estimated Average Glucose 160 mg/dl; Hemoglobin A1C 7.2 % (4.5-5.6)
[2021-02-20] MEDS: ASPIRIN 81 MG ECTAB PO SCH (08:15)
[2021-02-20] MEDS ORDERED: FUROSEMIDE 40 MG TAB PO SCH (09:00)
[2021-02-20] MEDS ORDERED: AZITHROMYCIN 250 MG TAB PO SCH (09:00)
--- NOTE | 2021-02-20 09:13 | XCELERA ---
[id number]
--- NOTE | 2021-02-20 10:27 | Neurology Consultation ---
Date of Consultation February 20, 2021 Assessment & Plan (1) Right hand weakness: (2) Hypertension: Patient had the acute onset of right hand weakness while traveling in the car February 19. On exam, he has the greatest weakness with finger extension. Prison Teacher, wrist extension, and intrinsic are weak but not as weak as finger extension. The etiology of this acute right hand weakness is likely peripheral, involving the radial nerve distally in the upper arm. There is no evidence to suggest a r ight cervical radiculopathy or stroke otherwise. Never the less I cannot entirely exclude a very small stroke that creates focal hand weakness on 1 side. I do note that his right hand is swollen compared to the left. Recommendations: 1. Elevate the right hand to reduce swelling. 2. MRI of the brain is pending. 3. Physical therapy for the right upper extremity. Overall, I spent a total of 60 minutes with this case including review of records, review of CT films, direct evaluation the patient bedside, and discussion of the case with the patient at bedside, RN at bedside, and Dr. Payne including differential diagnosis and treatment options. History of Present Illness Reason for Consultation: patient is a 75-year-old, who I was asked to see at the request of Dr. Corea, for neurologic consultation regarding possible stroke. Requesting Physician: Dr. Corea Attending Physician: Jones Payne History of Present Illness patient has a history of diabetes for at least 15 years and he has been on insulin for several years or so. He has a history of hypertension and dyslipidemia which are being treated with medication as well. Because of some shortness of breath and possible pneumonia he was placed on steroids and antibiotics about a week ago. His breathing has improved some. Patient lives in [place] and was traveling to [facility] for a conference/reunion regarding his buddies. Around 1130 on February 19 sitting in the passenger seat he had the sudden onset of weakness in the right hand. He could not extend his fingers or neurosurgery spine physician. There may have been some dysesthesias but he did not notice any chelly numbness or pain. It did not involve the rest of his right upper extremity or neck. He had no face or leg symptoms. He continued driving on his trip and came to the emergency room in [place] at 1639 with a temperature of 36.3, pulse 112, respiratory 18, blood pressure 116/71, and O2 saturation 96%. On exam he had weakness with extension and neurosurgery spine physician in the right hand. No other deficits were noted. CT scan of the head was unremarkable. CT angiography of the head and neck was remarkable for some stenosis in the distal right vertebral and to a lesser degree the distal left vertebral. Laboratory studies revealed a mildly elevated white count, elevated BUN creatinine and a glucose of 168. His hemoglobin A1c is 7.2. Triglycerides were 134 and total cholesterol 97. Echocardiogram revealed an ejection fraction of 20-25% with severe left ventricular global hypokinesia. Today he feels that his hand is the same but he is breathing reasonably well and has no other new issues or problems. He also noted some swelling in the fingers and joints of the right hand as well. He chronically has some swollen feet and legs. Allergies Allergy/AdvReac Type Severity Reaction Status Date / Time No Known Allergies Allergy Verified 02/19/21 17:40 Home Medications Medication Instructions Recorded Confirmed Type albuterol sulfate 1 - 2 puff INHALATION Q4H PRN 02/19/21 02/19/21 History amoxicillin-pot clavulanate 1 tab PO BID 02/19/21 02/19/21 History [Augmentin] azithromycin 250 mg PO DAILY 02/19/21 02/19/21 History furosemide [Lasix] 40 mg PO DAILY 02/19/21 02/19/21 History insulin glargine [Lantus Solostar 40 unit SUBCUT QPM 02/19/21 02/19/21 History U-100 Insulin] lisinopril 40 mg PO DAILY 02/19/21 02/19/21 History metformin 1,000 mg PO BIDM 02/19/21 02/19/21 History pioglitazone [Actos] 15 mg PO DAILY 02/19/21 02/19/21 History prednisone See Rx Instructions .ROUTE .COMPLEX 02/19/21 02/19/21 History simvastatin 40 mg PO HS 02/19/21 02/19/21 History Patient History Medical History Diabetes Hypertension Surgical History History of abdominal surgery Family History Mother , age 49 of pancreatic cancer Pancreatic cancer Father , age 54 of lung cancer Lung cancer Other Cancer Social History Smoking Status: Former smoker Tobacco Type: Cigars Age Quit Using Tobacco: 63; Smoking End Date: 12 years ago; Hx Alcohol Use: Yes Alcohol type: beer Alcohol Intake Frequency: Monthly or Less Hx Substance Use: No Preferred Language: Maltese Communication Ability: Effective Senior Director Of [employer] Required: No Beliefs That Will Affect Care: None Current Living Situation: Spouse Current 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 Feels Safe at Home: Yes Safety Concerns: Feels Safe At This Time Assistive Devices: Denture - Upper and Denture - Lower Review of Systems Constitutional: no fever, no fatigue and no weakness Eyes: no diplopia, no eye pain and no worsening vision Ear, Nose, Mouth, Throat: no ear pain, no tinnitus, no hearing loss, no dizziness, no snoring, no hoarseness and no dysphagia Respiratory: no cough and no dyspnea Cardiovascular: no chest pain, no palpitations and no lightheadedness Gastrointestinal: no abdominal pain, no nausea and no vomiting Genitourinary: no dysuria and no urinary incontinence Musculoskeletal: no back pain, no neck pain, no radicular pain, no joint pain and no myalgia Integumentary: no rash and no lesions Neurologic: + localized weakness; no gait abnormality, no generalized weakness, no tingling, no numbness, no tremor(s), no abnormal movements, no headache(s), no abnormal speech, no confusion and no memory loss Psychiatric: no depression, no irritability, no anxiety, no difficulty concentrating, no confusion and no hallucinations Endocrine: no fatigue and no flushing Hematologic / Lymphatic: no easy bleeding and no easy bruising Allergy / Immunological: no urticaria and no problem reported Exam (Neuro) Physical Exam: The patient is right-handed. The patient is awake, alert, and attentive. Speech is normal without any aphasia or dysarthria. he can name objects, repeat phrases, and has normal spontaneous speech. Mentation and thought processes are intact, with orientation to person, place and time, and normal fund of knowledge. Attention and concentration are normal. Mood and affect are normal and appropriate. General appearance and grooming are normal. Short and long-term memory are intact. Pupils are 3 mm bilaterally and reactive to light. Extraocular eye muscles are intact without nystagmus. Visual acuity and visual palmer seem normal grossly to confrontation. There are no deficits to sensation in the face in all 3 distributions of the fifth cranial nerve bilaterally. Corneal reflexes are positive bilaterally. Facial strength and symmetry was normal bilaterally. Hearing seems normal to whisper and finger rub bilaterally. Palate moves well without asymmetry. There is normal sternocleidomastoid and trapezius (shoulder shrug) strength bilaterally. Tongue is midline with good strength bilaterally. Neck has a full range of motion without discomfort. There are no cervical bruits bilaterally. There are no cranial or ocular bruits. Heart is without murmur. There is a regular rhythm and rate. Cervical, thoracic, and lumbar spine are nontender to palpation. Gait is narrow based, with good arm swing, turns, and stance. With outstretched arms there is no drift. There are no resting, postural, or action tremors. There is no ataxia with finger to nose testing. There is good facility in the hands. No other abnormal involuntary movements are noted. Motor strength is 5/5 diffusely in the left upper extremity including deltoids, biceps, triceps, brachioradialis, wrist flexors and extensors, neurosurgery spine physician, and intrinsic hand muscles. motor strength in the right upper extremity is 5/5 in the deltoid, biceps, tric eps, and brachioradialis. wrist extension is 4/5 and finger extension is 2-3/5. Prison Teacher is 4/5 in intrinsic muscle strength is 4/5. Motor strength is 5/5 diffusely in the legs bilaterally including hip flexors, quadriceps, hamstrings, gastrocnemius, tibialis anterior, tibialis posterior, and Peroneii muscles. Toe extensors are normal and there is good bulk in the extensor digitorum brevis muscles bilaterally. The limbs have good tone without rigidity or spasticity. There is no atrophy noted in the muscles. Muscle bulk is normal, there is no tenderness to palpation, no myotonia to percussion, and no fasciculations seen. Sensory examination is intact to touch and pin throughout all 4 limbs diffusely. There was no decreased sensation in the right hand compared to the left. Reflexes are 2/4 in the biceps, triceps, brachioradialis, quadriceps, and Achilles tendons bilaterally. There is no clonus bilaterally. Toes are downgoing with plantar stimulation bilaterally. Peripheral pulses are present and of normal quality distally in all 4 limbs. There is no peripheral edema noted in the limbs. Results & Data ([facility]) Vital Signs (Past 12 Hours) Vital Signs Temp Pulse Pulse Resp BP BP Pulse Ox 02/20/21 07:45 36.3 C L 93 H 18 125/85 99 02/20/21 04:05 36.4 C L 90 20 108/72 96 02/20/21 00:03 90 02/19/21 23:26 36.4 C L 92 H 18 120/81 94 02/19/21 23:00 36.4 C L 93 H 18 99/62 L 95 PG Care Time/CCT Total # of Minutes Spent Total Time Spent with Patient: Total time spent is greater than 50% in coordination of care (as documented) at patient's floor/unit and/or counseling patient: Coding Level of Care Code 89190 Initial Inpt Care Lvl 3 Diagnoses Right hand weakness R29.898 Hypertension I10 Time Spent (min) 60
[2021-02-20] MEDS ORDERED: GADOBUTROL 65ML VIAL IV ONE (11:12)
--- NOTE | 2021-02-20 12:06 | Magnetic Resonance Report ---
Brain MRI WITH AND WITHOUT CONTRAST HISTORY: Right hand weakness. Possible stroke. TECHNIQUE: Multiplanar multisequence MRI of the brain was performed both before and after the intrave nous administration of contrast. COMPARISON STUDY: Head CT 03/08/2021. FINDINGS: There is a 2.2 x 1.0 cm focus of restricted diffusion within the left precentral gyrus cons istent with an acute infarct. The midline structures are intact. There is associated cytotoxic edema at the site of infarct. The ventricles and sulci demonstrate mild age-related involutional changes. T here is no mass, hematoma, midline shift. The major vascular flow voids at the skull base are well-ma intained. The paranasal sinuses and mastoid air cells are clear. Mild periventricular white matter T2 hyperintensity is nonspecific but favors microvascular ischemic change. Postcontrast sequences show no areas of abnormal enhancement. IMPRESSION: A small acute infarct within the left precentral gyrus at the high convexity. ACT 112: Negative or not required by law. Electronically signed by: Casimiro Soto M.D. 02/20/2021 12:05 PM
--- NOTE | 2021-02-20 12:14 | XRay Report ---
XR chest 2V PA/lateral HISTORY: Shortness of breath. COMPARISON: None. FINDINGS: No pneumothorax. Trace bilateral pleural effusions. The heart is mildly enlarged. There is diffuse interstitial and vascular thickening consistent with pulmonary edema. Increased markings at t he lung bases favors atelectasis from the pleural effusions. Otherwise, no focal lung consolidations to suggest pneumonia. IMPRESSION: Cardiomegaly, trace bilateral pleural effusions, and mild to moderate pulmonary edema. ACT 112: Negative or not required by law. Electronically signed by: Casimiro Soto M.D. 02/20/2021 12:13 PM
--- NOTE | 2021-02-20 12:55 | Hospitalist Progress Note ---
Date of Service February 20, 2021 Assessment & Plan (1) Acute systolic CHF (congestive heart failure): Etiology uncertain. Does appear to have areas of akinesis in the inferior wall on today's echo which may suggest underlying CAD. No prior h/o tachyarrhythmias. No h/o autoimmune disease. Has never had COVID to his knowledge. No excessive etoh use. Regardless of etiology - diurese - 40mg lasix IV now, then 40mg IV BID starting in am. Start metoprolol xl 25mg in am. Ultimately will need LOY or entresto. Strict I's and O's. Daily weights. Cardiology consult - spoke with Dr Mckenzie directly. (2) Cardiomyopathy: akinesis inferior wall on echo - coupled with CAD risk factors - may suggest ischemia/CAD as cause of his cardiomyopathy. will ultimately need cardiac cath in near-future to r/o such. see "acute systolic CHF" above. (3) Elevated troponin: Likely myocardial demand ischemia in setting of acute CHF, DAMIÁN, etc. Unlikely to be ACS. No typical symptoms for such. [id number] he will need a cath in the near-future to r/o ischemia as cause of his cardiomyopathy. (4) Cerebrovascular accident: Small stroke seen on MRI today, with DWI images showing stroke in the high frontal region on left c/w his right hand weakness. Cardioembolic in the setting of severely depressed LV function? need for anticoagulation? will d/w neurology. continue aspirin in meantime. PT, OT, speech. lipids in am. statin. (5) Right hand weakness: 2nd to left frontal lobe stroke. Cardioembolic etiology suspected in light of severely depressed LV function. PT, OT. (6) Diabetes: HbA1C 7.2%. Cont lantus. Cont novolog. (7) Hypertension: Hold LOY in setting of Damián as well as his acute CVA -- and need for beta blockade. (8) Hyperlipidemia: LDL 34. Cont simvastatin 40mg daily. (9) Elevated serum creatinine: uncertain baseline bmp am however, Creatinine has improved with diuresis from 1.8 to 1.5. (10) Shortness of breath: This is NOT due to acute bronchitis. STOP augmentin. STOP prednisone. STOP zithromax. SOB due to acute systolic CHF. (11) DVT prophylaxis: Likely to need full strength anticoagulation in setting of suspected cardioembolic etiology for his acute CVA. Would go with eliquis 5mg BID. During my bedside visit I had patient call his . was on phone speaker for entire visit. I went into great detail of every issue we have discovered while here. Questions answered. Pt and concerned about how he will be able to get back to [place]. I encouraged them to focus more so on the acute medical issues given the gravity of his CHF, stroke, etc. I did tell them about our airport, etc for future travel home. total time today 75 min including speaking with neuro, speaking with , speaking with cardiology, complex care coordination Admission and Anticipated Discharge Date Admission Date: February 19, 2021 Subjective tele overnight wnl patient continues with mild KLEIN some orthopnea severe edema b/l legs patient states that over the last few weeks (or months) - he is not a great historian - when he would golf he would run out of energy on the course some KLEIN also noted dyspnea/cough started about 4-5 days before going to the urgent care back in [facility] was told he had bronchitis - placed on steroids & augmentin he doesn't recall any discrete episodes of chest pain over the last few weeks/months has never had COVID grandfather with history of CAD Review of Systems Constitutional: no fever, no chills and no anorexia Respiratory: + dyspnea on exertion Cardiovascular: + edema; no chest pain and no palpitations Gastrointestinal: no abdominal pain, no nausea and no vomiting Physical Exam Constitutional: + obese; no acute distress and no altered mental status ENMT: external ear and nose normal, oropharynx normal Respiratory: + tachypneic Auscultation: + diminished lung sounds (bases) and + crackles (bases); no wheezes Cardiovascular: Rate/Rhythm: regular rate and regular rhythm Heart Sounds: normal S1 and normal S2; no murmur Vessels: + JVD (nearly to the jaw ), posterior tibial pulses present and dorsalis pedis pulses present Extremities: + edema (2-3+ b/l ) Gastrointestinal (Abdomen): normal bowel sounds, soft, nontender, no hepatosplenomegaly (+hepatojugular reflex ) Neurologic: right hand weakness, 3-4/5, with mild wrist extension deficit as well; right proximal arm 5/5 strength; LUE, LLE, RLE - 5/5 strength; no facial droop; no dysarthria Psychiatric: A+Ox3, euthymic affect Results & Data Results & Data ([facility]) Vital Signs (Past 12 Hours) Vital Signs Temp Pulse Pulse Resp BP Pulse Ox 02/20/21 08:00 81 02/20/21 07:45 36.3 C L 93 H 18 125/85 99 02/20/21 04:05 36.4 C L 90 20 108/72 96 Laboratory Results Laboratory Results - last 24 hr 02/19/21 02/19/21 02/19/21 17:05 17:05 17:05 WBC 12.01 H RBC 4.04 L Hgb 12.3 L Hct 37.7 L MCV 93.3 MCH 30.4 MCHC 32.6 RDW Std Deviation 47.9 H RDW Coeff of Fabian 14.0 Plt Count 516 H MPV 9.7 Immature Gran % (Auto) 0.2 Neut % (Auto) 79.6 Lymph % (Auto) 13.7 Bland % (Auto) 6.2 Eos % (Auto) 0.1 Baso % (Auto) 0.2 Neut # (Auto) 9.57 H Lymph # (Auto) 1.64 Bland # (Auto) 0.74 H Eos # (Auto) 0.01 Baso # (Auto) 0.02 Immature Gran # (Auto) 0.03 H PT 10.9 INR 1.1 APTT 23.7 PTT Ratio 0.9 Sodium 138 Potassium 4.5 Chloride 108 H Carbon Dioxide 22 Anion Gap 8.0 BUN 48 H Creatinine 1.80 H Est Cr Clr Drug Dosing 45.6 Est GFR ( Amer) 42.0 Est GFR (Non-Af Amer) 36.3 BUN/Creatinine Ratio 26.6 H Glucose 168 H POC Glucose Estimat Average Glucose Hemoglobin A1c Calcium 9.3 Magnesium 2.0 Total Bilirubin 0.4 AST 27 ALT 51 Alkaline Phosphatase 106 Troponin I 0.255 H* NT-Pro-B Natriuret Pep Total Protein 7.5 Albumin 3.4 Globulin 4.1 H Albumin/Globulin Ratio 0.8 L Triglycerides Cholesterol LDL Cholesterol, Calc VLDL Cholesterol, Calc HDL Cholesterol Cholesterol/HDL Ratio COVID-19 Eval Order SARS-CoV-2 (PCR) 02/19/21 02/19/21 02/19/21 17:31 17:35 17:35 WBC RBC Hgb Hct MCV MCH MCHC RDW Std Deviation RDW Coeff of Fabian Plt Count MPV Immature Gran % (Auto) Neut % (Auto) Lymph % (Auto) Bland % (Auto) Eos % (Auto) Baso % (Auto) Neut # (Auto) Lymph # (Auto) Bland # (Auto) Eos # (Auto) Baso # (Auto) Immature Gran # (Auto) PT INR APTT PTT Ratio Sodium Potassium Chloride Carbon Dioxide Anion Gap BUN Creatinine Est Cr Clr Drug Dosing Est GFR ( Amer) Est GFR (Non-Af Amer) BUN/Creatinine Ratio Glucose POC Glucose 148 H Estimat Average Glucose Hemoglobin A1c Calcium Magnesium Total Bilirubin AST ALT Alkaline Phosphatase Troponin I NT-Pro-B Natriuret Pep Total Protein Albumin Globulin Albumin/Globulin Ratio Triglycerides Cholesterol LDL Cholesterol, Calc VLDL Cholesterol, Calc HDL Cholesterol Cholesterol/HDL Ratio COVID-19 Eval Order Covid19 at [facility] SARS-CoV-2 (PCR) NEGATIVE 02/20/21 02/20/21 02/20/21 00:13 00:42 05:54 WBC 9.75 RBC 3.90 L Hgb 12.0 L Hct 37.5 L MCV 96.2 MCH 30.8 MCHC 32.0 RDW Std Deviation 49.4 H RDW Coeff of Fabian 14.1 Plt Count 492 H MPV 9.5 Immature Gran % (Auto) 0.1 Neut % (Auto) 65.9 Lymph % (Auto) 26.5 Bland % (Auto) 6.5 Eos % (Auto) 0.5 Baso % (Auto) 0.5 Neut # (Auto) 6.43 Lymph # (Auto) 2.58 Bland # (Auto) 0.63 H Eos # (Auto) 0.05 Baso # (Auto) 0.05 Immature Gran # (Auto) 0.01 PT INR APTT PTT Ratio Sodium Potassium Chloride Carbon Dioxide Anion Gap BUN Creatinine Est Cr Clr Drug Dosing Est GFR ( Amer) Est GFR (Non-Af Amer) BUN/Creatinine Ratio Glucose POC Glucose 123 H Estimat Average Glucose Hemoglobin A1c Calcium Magnesium Total Bilirubin AST ALT Alkaline Phosphatase Troponin I 0.349 H* NT-Pro-B Natriuret Pep Total Protein Albumin Globulin Albumin/Globulin Ratio Triglycerides Cholesterol LDL Cholesterol, Calc VLDL Cholesterol, Calc HDL Cholesterol Cholesterol/HDL Ratio COVID-19 Eval Order SARS-CoV-2 (PCR) 06/01/0702/20/21 02/20/21 05:54 05:54 05:54 WBC RBC Hgb Hct MCV MCH MCHC RDW Std Deviation RDW Coeff of Fabian Plt Count MPV Immature Gran % (Auto) Neut % (Auto) Lymph % (Auto) Bland % (Auto) Eos % (Auto) Baso % (Auto) Neut # (Auto) Lymph # (Auto) Bland # (Auto) Eos # (Auto) Baso # (Auto) Immature Gran # (Auto) PT INR APTT PTT Ratio Sodium 140 Potassium 4.3 Chloride 110 H Carbon Dioxide 23 Anion Gap 7.0 BUN 38 H Creatinine 1.54 H Est Cr Clr Drug Dosing 53.3 Est GFR ( Amer) 50.8 Est GFR (Non-Af Amer) 43.8 BUN/Creatinine Ratio 24.7 H Glucose 96 POC Glucose Estimat Average Glucose 160 Hemoglobin A1c 7.2 H Calcium 8.6 Magnesium Total Bilirubin AST ALT Alkaline Phosphatase Troponin I 0.310 H* NT-Pro-B Natriuret Pep 82130 H Total Protein Albumin Globulin Albumin/Globulin Ratio Triglycerides 134 Cholesterol 97 LDL Cholesterol, Calc 34 VLDL Cholesterol, Calc 27 HDL Cholesterol 36 Cholesterol/HDL Ratio 3 COVID-19 Eval Order SARS-CoV-2 (PCR) 02/20/21 02/20/21 02/20/21 07:36 08:56 11:49 WBC RBC Hgb Hct MCV MCH MCHC RDW Std Deviation RDW Coeff of Fabian Plt Count MPV Immature Gran % (Auto) Neut % (Auto) Lymph % (Auto) Bland % (Auto) Eos % (Auto) Baso % (Auto) Neut # (Auto) Lymph # (Auto) Bland # (Auto) Eos # (Auto) Baso # (Auto) Immature Gran # (Auto) PT INR APTT PTT Ratio Sodium Potassium Chloride Carbon Dioxide Anion Gap BUN Creatinine Est Cr Clr Drug Dosing Est GFR ( Amer) Est GFR (Non-Af Amer) BUN/Creatinine Ratio Glucose POC Glucose 107 H 155 H Estimat Average Glucose Hemoglobin A1c Calcium Magnesium Total Bilirubin AST ALT Alkaline Phosphatase Troponin I 0.310 H* NT-Pro-B Natriuret Pep Total Protein Albumin Globulin Albumin/Globulin Ratio Triglycerides Cholesterol LDL Cholesterol, Calc VLDL Cholesterol, Calc HDL Cholesterol Cholesterol/HDL Ratio COVID-19 Eval Order SARS-CoV-2 (PCR) PG Care Time/CCT Total # of Minutes Spent Total Time Spent with Patient: Total time spent is greater than 50% in coordination of care (as documented) at patient's floor/unit and/or counseling patient: Prolonged Care Time Prolonged Care Time: Yes Total Prolonged Care Time: 75 Coding Level of Care Code 35207 Subseq Hosp Care Lvl 3 (25 - SIGNIFICANT, SEPARATELY IDENTIFIABLE ) Diagnoses Acute systolic CHF (congestive heart failure) I50.21 Cardiomyopathy I42.9 Cardiomyopathy type: unspecified Elevated troponin R77.8 Cerebrovascular accident I63.9 CVA mechanism: unspecified Right hand weakness R29.898 Diabetes E11.9; Z79.4 Diabetes mellitus complication status: without complication Diabetes mellitus ferry terminal supervisor insulin use: with ferry terminal supervisor use Diabetes mellitus type: type 2 Hypertension I10 Hypertension type: essential hypertension Hyperlipidemia E78.2 Hyperlipidemia type: mixed hyperlipidemia Elevated serum creatinine R79.89 Shortness of breath R06.02 DVT prophylaxis Z29.9 Additional Codes Prolonged Care Time - Prolonged Care Time: Yes ([id number]) Time Spent (min) 75 (1) Diabetes Diabetes mellitus complication status: without complication Diabetes mellitus nursing home insulin use: with ferry terminal supervisor use Diabetes mellitus type: type 2 Qualified Code(s): E11.9 - Type 2 diabetes mellitus without complications; Z79.4 - [facility] (current) use of insulin (2) Hyperlipidemia Hyperlipidemia type: mixed hyperlipidemia Qualified Code(s): E78.2 - Mixed hyperlipidemia (3) Cerebrovascular accident CVA mechanism: unspecified Qualified Code(s): I63.9 - Cerebral infarction, unspecified (4) Hypertension Hypertension type: essential hypertension Qualified Code(s): I10 - Essential (primary) hypertension (5) Cardiomyopathy Cardiomyopathy type: unspecified Qualified Code(s): I42.9 - Cardiomyopathy, unspecified
[2021-02-20] MEDS: POTASSIUM CHLORIDE CRTAB 20 MEQ TABCR PO SCH ×2 (13:17→20:54)
[2021-02-20] MEDS ORDERED: FUROSEMIDE 40 MG in SYRINGE 0 ML IV ONE (14:00)
--- NOTE | 2021-02-20 15:10 | Ultrasound Report ---
ULTRASOUND RIGHT UPPER EXTREMITY ARTERIAL CLINICAL HISTORY: Decreased radial pulses. Cold upper extremity. COMPARISON STUDY: No priors. TECHNIQUE: Real-time grayscale and color Doppler sonography of the arteries of the right upper extrem ity is performed. FINDINGS: The arteries of the right upper extremity are patent and show normal arterial waveforms. Ve locities in the right common carotid artery measure up to 83 cm/s. The right vertebral artery is glaser nt with normal direction of flow and velocities measuring up to 50 cm/s. The right subclavian artery is patent with velocities measuring up to 92 cm/s. The axillary and brachial arteries are patent with normal arterial waveforms and velocities measuring up to 92 cm/s. The radial and ulnar arteries are patent with velocities measuring up to 86 cm/s. Calcified plaque is noted. IMPRESSION: There is no sonographic evidence of high-grade stenosis or focal vessel cut off seen thro ughout the arteries of the right upper extremity. Electronically signed by: Omid Noel M.D. 02/20/2021 3:09 PM
--- NOTE | 2021-02-20 15:51 | Cardiology Consultation ---
Date of Consultation February 20, 2021 Assessment & Plan (1) Acute systolic CHF (congestive heart failure): (2) Cardiomyopathy: (3) Diabetes: (4) Cerebrovascular accident: 75-year-old man with vascular risk factors (diabetes, hypertension) but no known cardiac history who notes recent symptoms consistent with subacute onset congestive heart failure. Echocardiogram performed for work-up of CVA showed severely reduced systolic function (EF=20-25%) with wall motion abnormalities (severe global hypokinesis with inferior akinesis). Remarkably, he is minimally symptomatic but clearly volume overloaded. Agree with taking advantage of his inpatient status by pursuing aggressive diuresis ( furosemide 40 mg IV twice daily). Agree with initiation of metoprolol succinate for guideline based therapy of heart failure reduced ejection fraction. Agree with addition of aspirin and continuation of statin given his vascular risk factors. Given his low normal blood pressure, rather than adding multiple vasoactive medications while he is being actively diuresed, reasonable to wait 24 to 48 h ours before initiating LOY inhibitor, ARB, or Entresto (he would seem a good candidate for this). No clear history to suggest recent clinical infarct, but given his vascular risk factors at some point occlusive coronary artery disease should be excluded (preferably by cardiac catheterization). His current troponin elevation is modest and flat and he has no symptoms to suggest acute process. Most likely the troponin elevation is demand ischemia from acute volume overload. Depending upon his clinical course and renal function, could potentially pursue catheterization on Tuesday. Given the lack of ongoing ischemic symptoms, catheterization is not urgent and could also be obtained when he returns home to [place]. Will follow over the weekend and continue to assist with titration of medica tions. History of Present Illness Reason for Consultation: Acute systolic CHF Requesting Physician: Jones Payne Attending Physician: Jones Payne History of Present Illness 75-year-old man with history of diabetes mellitus (on insulin), hypertension, but no known cardiac history, who was admitted 02/19/21 with hand paresthesias been found to have had a CVA of suspected cardioembolic origin. During his CVA work-up, echocardiogram demonstrated ejection fraction 20 to 25% with severe global hypokinesis and inferior wall akinesis. As noted, given his lack of cardiac history, this was quite unexpected. Patient had been noting some dyspnea on exertion when golfing, but had no other heart failure type complaints until he was recently started on prednisone for a presumed "bronchitis". He subsequently developed significant weight gain and leg edema. He denies chest pain at any time and notes no significant palpitations, orthopnea, or PND. At the time of my evaluation, he was sitting comfortably and had no major somatic complaints. Allergies Allergy/AdvReac Type Severity Reaction Status Date / Time No Known Allergies Allergy Verified 02/19/21 17:40 Home Medications Medication Instructions Recorded Confirmed Type albuterol sulfate 1 - 2 puff INHALATION Q4H PRN 02/19/21 02/19/21 History amoxicillin-pot clavulanate 1 tab PO BID 02/19/21 02/19/21 History [Augmentin] azithromycin 250 mg PO DAILY 02/19/21 02/19/21 History furosemide [Lasix] 40 mg PO DAILY 02/19/21 02/19/21 History insulin glargine [Lantus Solostar 40 unit SUBCUT QPM 02/19/21 02/19/21 History U-100 Insulin] lisinopril 40 mg PO DAILY 02/19/21 02/19/21 History metformin 1,000 mg PO BIDM 02/19/21 02/19/21 History pioglitazone [Actos] 15 mg PO DAILY 02/19/21 02/19/21 History prednisone See Rx Instructions .ROUTE .COMPLEX 02/19/21 02/19/21 History simvastatin 40 mg PO HS 02/19/21 02/19/21 History Patient History Medical History Diabetes Hypertension Surgical History History of abdominal surgery Family History Father, age 54 of lung cancer Mother, age 49 of pancreatic cancer Pancreatic cancer Mother Lung cancer Father Cancer Social History Smoking Status: Former smoker Tobacco Type: Cigars Age Quit Using Tobacco: 63; Smoking End Date: 12 years ago; Hx Alcohol Use: Yes Alcohol type: beer Alcohol Intake Frequency: Monthly or Less Hx Substance Use: No Preferred Language: Latvian Communication Ability: Effective Facilities Operator Required: No Beliefs That Will Affect Care: None Current Living Situation: Spouse Current Living Situation Comment: 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 Afebrile. Normotensive. Pulse 82 bpm and regular. Skin: no ecchymoses or generalized lesions. HEENT: unremarkable. Neck: Jugular venous pulse two thirds of the way to the angle of the jaw at 90 degrees, no carotid bruits. Lungs: Few basilar crackles, generally clear. No wheezing. No accessory muscle use. Cardiac: Faint heart tones, normal S1 and S2, 2/6 apical holosystolic murmur radiating to the axilla, no diastolic obvious murmur or gallop. Abdomen: benign. Extremities: 12+ edema, pulses intact. Neurologic: normal affect and conversation, nonfocal. Results & Data ([facility]) Vital Signs (Past 12 Hours) Vital Signs Temp Pulse Pulse Resp BP Pulse Ox 02/20/21 08:00 81 02/20/21 07:45 97.3 F L 93 H 18 125/85 99 02/20/21 04:05 97.5 F L 90 20 108/72 96 Laboratory Results CBC with normal white count and platelet count, hemoglobin 12.0. Normal electrolytes, BUN 38, creatinine 1.54. Troponin 0.250.35 range with flat curve. proBNP 17,322. Diagnostic Findings ECG showed sinus tachycardia, left atrial enlargement, asymmetric anterolateral/lateral T wave inversions. No prior ECG for comparison. Echocardiogram showed EF 20 to 25% with severe global hypokinesis and inferior wall akinesis. Mild to moderate pulmonary valve regurgitation, moderate mitral regurgitation, moderate pulmonary hypertension, severely dilated inferior vena cava, large pleural effusion. Chest x-ray showed trace bilateral pleural effusions with mild to moderate pulmonary edema. Brain MRI showed a small acute infarct within the left precentral gyrus at the high convexity. 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
[2021-02-20] MEDS: MAGNESIUM OXIDE 400 MG TAB PO SCH (20:54)
[2021-02-21 06:33] LABS: Basophils # (auto) 0.03 K/uL (0-0.2); Basophils % (auto) 0.3 %; Eosinophils # (auto) 0.13 K/uL (0-0.5); Eosinophils % (auto) 1.5 %; Hemoglobin 12.6 g/dL (14.0-18.0); Immature Granulocytes # (auto) 0.01 K/uL (0.00-0.02); Immature Granulocytes % (auto) 0.1 %; Lymphocytes % (auto) 22.6 %; Mean Corpuscular Hemoglobin 30.4 pg (25-34); Mean Corpuscular Hgb Conc 32.3 g/dL (32-36); Mean Platelet Volume 9.8 fL (7.4-10.4); Monocytes # (auto) 0.63 K/uL (0.11-0.59); Monocytes % (auto) 7.1 %; Neutrophils # (auto) 6.06 K/uL (1.4-6.5); Neutrophils % (auto) 68.4 %; Platelet Count 463 K/uL (130-400); RDW Coefficient of Variation 13.8 % (11.5-14.5); RDW Standard Deviation 47.5 fL (36.4-46.3); Red Blood Count 4.15 M/uL (4.7-6.1); White Blood Count 8.86 K/uL (4.8-10.8)
[2021-02-21 07:10] LABS: BUN Creatinine Ratio 25.1 (10-20); Calcium 9.4 mg/dl (8.5-10.1); Creatinine Clr Calc Pharmacy 59.1 ml/min; Est GFR (African American) 57.5 ml/min; Est GFR (Non-African American) 49.6 ml/min; Potassium 4.3 mmol/L (3.5-5.1)
[2021-02-21] MEDS: INSULIN ASPART 100 UNITS/ML 3 ML PEN SC SCH ×2 (07:51→12:01)
[2021-02-21] MEDS: INSULIN GLARGINE SOLOSTAR 100 UNITS/ML 3 ML PEN SC SCH (07:52)
[2021-02-21] MEDS: POTASSIUM CHLORIDE CRTAB 20 MEQ TABCR PO SCH (07:53)
[2021-02-21] MEDS: MAGNESIUM OXIDE 400 MG TAB PO SCH (07:56)
[2021-02-21] MEDS: ASPIRIN 81 MG ECTAB PO SCH (07:56)
[2021-02-21] MEDS ORDERED: APIXABAN 5 MG TABLET PO SCH ×3 (09:00→21:00)
[2021-02-21] MEDS ORDERED: METOPROLOL SUCC 25MG EXT REL TAB PO SCH (09:00)
[2021-02-21] MEDS ORDERED: FUROSEMIDE 40 MG in SYRINGE 0 ML IV SCH (09:00)
--- NOTE | 2021-02-21 11:17 | Cardiology Progress Note ---
Date of Service February 21, 2021 Assessment & Plan (1) Acute systolic CHF (congestive heart failure): (2) Cardiomyopathy: (3) Diabetes: (4) Cerebrovascular accident: Excellent overnight diuresis by history. Volume status appears favorable currently. Initiated on metoprolol succinate yesterday, heart rate improved and BP is acceptable. Given his excellent clinical status and the fact that he lives out of town ([place]), reasonable for him to return home to have his cardiomyopathy further evaluated and medications titrated there. Would recommend the following upon discharge: -Low-sodium diet. -Furosemide 40 mg p.o. daily, hold dose for day if he loses more than 5 pounds more (to avoid overdiuresis). Potassium chloride 20 mEq with each furosemide dose. -Continue aspirin, apixaban, simvastatin, and metoprolol. -Initiation of LOY inhibitor, ARB, or Entresto as outpatient (titrated to BP). -Evaluation for occlusive CAD, cardiac catheterization would be best. -Please give patient a copy of his echocardiogram results to facilitate future cardiology evaluation. Admission and Anticipated Discharge Date Admission Date: February 19, 2021 Subjective He feels well this morning, noting no dyspnea with minor activities (walking to the bathroom) or at rest. He denies any chest pain, subjective palpitations, lightheadedness, or other complaints. He did note of brisk diuresis, more than a half dozen trips to the bathroom to urinate. Unfortunately, there is no record of input/output and his weight was not accurately recorded overnight (listed as 31 pound weight gain?!). His blood pressure was low normal/borderline hypotensive (asymptomatic) over the past 24 hours. His heart rate was in the 90s yesterday, 70 to 80 bpm today. Telemetry showed only sinus bradycardia (when sleeping) and sinus rhythm. No dysrhythmias He had no complaints at the time of my visit. Physical Exam Physical Exam: No distress. BP 110/71 mmHg. Pulse 78 Skin: no ecchymoses or generalized lesions. HEENT: unremarkable. Neck: Jugular venous pulse at the clavicle at 90 degrees, no carotid bruits. Lungs: clear. No wheezing. No accessory muscle use. Cardiac: Faint heart tones, normal S1 and S2, 2/6 apical holosystolic murmur radiating to the axilla, no diastolic obvious murmur or gallop. Abdomen: benign. Extremities: 1+ edema (improved), pulses intact. Neurologic: normal affect and conversation, nonfocal. Results & Data ([facility]) Vital Signs (Past 12 Hours) Vital Signs Temp Pulse Pulse Resp BP Pulse Ox 02/21/21 07:47 97.7 F 78 18 110/71 98 02/21/21 07:24 80 02/21/21 02:40 97.7 F 86 19 105/70 95 02/20/21 23:18 75 Laboratory Results Hemoglobin 12.6 with normal white count and platelet count of 463,000. Normal electrolytes with potassium 4.3, BUN 35, creatinine 1.39 (no comparison). PG Care Time/CCT Total # of Minutes Spent Total Time Spent with Patient: Total time spent is greater than 50% in coordination of care (as documented) at patient's floor/unit and/or counseling patient: Coding Level of Care Code 94488 Subseq Hosp Care Lvl 3 Diagnoses Acute systolic CHF (congestive heart failure) I50.21 Cardiomyopathy I42.9 Cardiomyopathy type: unspecified Diabetes E11.9; Z79.4 Diabetes mellitus type: type 2 Diabetes mellitus long term care pharmacist insulin use: with senior living use Diabetes mellitus complication status: without complication Cerebrovascular accident I63.9 CVA mechanism: unspecified (1) Cardiomyopathy Cardiomyopathy type: unspecified Qualified Code(s): I42.9 - Cardiomyopathy, unspecified (2) Diabetes Diabetes mellitus type: type 2 Diabetes mellitus senior living insulin use: with senior living use Diabetes mellitus complication status: without complication Qualified Code(s): E11.9 - Type 2 diabetes mellitus without complications; Z79.4 - [facility] (current) use of insulin (3) Cerebrovascular accident CVA mechanism: unspecified Qualified Code(s): I63.9 - Cerebral infarction, unspecified
--- NOTE | 2021-02-21 14:33 | Discharge Summary ---
Date of Service date of admission - February 19, 2021 date of discharge - February 21, 2021 Admission HPI Per Admitting Provider Jorge Luis Hernandez is a 75yo male with history of DM presenting with numbness/tingling and poor coordination of his right hand. Patient is from [place] and is currently in [place] for a meeting. He was driving with a friend from [place] and stopped in [place] to eat and noted that he was unable to open the car door due to his right hand feeling numb/tingling and clumsy. He denies pain, LEE, visual disturbance, speech difficulty. No additional focal neurological complaints. He denies pain in the neck or arm. He denies sleeping on his hand/arm or poor positioning that may lead to a radiculopathy. Patient was recently seen by his PCP for complaint of shortness of breath and decreased exercise tolerance. He was given Albuterol inhaler, Steroid taper, antibiotics and decongestant. He states that he has had a cough productive for clear phlegm as well as occasional wheezing. He has a rash on his legs which occurs with heat. Otherwise patient without complaint. ER Course: ASA 324mg Principal Diagnosis 1. right hand weakness 2nd to presumed cardioembolic stroke 2. acute systolic CHF with marked volume overload 3. concern for ischemic cardiomyopathy Discharge Exam Constitutional + obese; no acute distress and no altered mental status ENMT external ear and nose normal, oropharynx normal Respiratory no respiratory distress Auscultation: + diminished lung sounds (bases) and + crackles (Bases, but marked improvement from previous exams); no wheezes Cardiovascular Rate/Rhythm: regular rate and regular rhythm Heart Sounds: normal S1 and normal S2; no murmur Vessels: posterior tibial pulses present and dorsalis pedis pulses present; no JVD Extremities: + edema (1+ b/l ) Gastrointestinal (Abdomen) normal bowel sounds, soft, nontender, no hepatosplenomegaly (+hepatojugular reflex ) Neurologic focal right hand weakness - 4/5 strength; right wrist extension also impaired; remainder of neuro exam normal; no facial droop; speech clear Psychiatric A+Ox3, euthymic affect Discharge Data Allergies Allergy/AdvReac Type Severity Reaction Status Date / Time No Known Allergies Allergy Verified 02/19/21 17:40 Consultations [facility] Neurology - Redd Webster MD [facility] Cardiology - Sage Mckenzie MD PT, OT, speech therapy Ordered Studies Head CT 02/19/21 17:[address] DOSE: HISTORY: Stroke Like Symptoms TECHNIQUE: Multiaxial CT images of the head were performed without the use of intravenous contrast. Automated exposure control was utilized for this study. A dose lowering technique was utilized adhering to the principles of ALARA. Comparison: None. Findings: The paranasal sinuses and mastoid air cells are clear. The calvarium and skull base are intact. There is no mass, hematoma, midline shift, acute infarct. White matter hypodensity is nonspecific but suggestive of microvascular ischemic change. The ventricles and sulci demonstrate mild age-related involutional changes. Impression: No acute intracranial abnormality. Atrophy and microvascular ischemic changes. ACT 112: Negative or not required by law. Electronically signed by: Casimiro Soto M.D. 02/19/2021 5:30 PM Head CTA 02/19/21 17:04 HEAD & NECK CTA HISTORY: Stroke Like Symptoms TECHNIQUE: Multiaxial CT images of the head were performed following the intravenous administration of contrast to evaluate the major cerebral vessels. Multiaxial CT images of the neck were also performed following the intravenous administration of contrast to evaluate the major cervical vessels. Maximum intensity projection images were also obtained. A dose lowering technique was utilized adhering to the principles of ALARA. COMPARISON: None. FINDINGS: Moderate calcified plaque within the bilateral distal vertebral arteries resolving and mild stenosis within the distal left vertebral artery and severe stenosis within the distal right vertebral artery. The basilar artery is widely patent. Mild stenosis within the right supraclinoid ICA due to the focal calcified plaque. No significant stenosis within the left intracranial ICA. The bilateral ACAs, MCAs, workday senior associate show no significant stenosis, occlusion, or aneurysm. The major dural venous sinuses appear patent. The aortic arch and proximal great vessels are widely patent. There is no significant stenosis, occlusion, or dissection identified within the bilateral common carotid, internal carotid, or vertebral arteries. Mild interlobular septal thickening and small patchy groundglass airspace opacities most pronounced within the right upper lobe. There are also small to moderate bilateral pleural effusions. This favors pulmonary edema. Groundglass airspace opacities, also be seen in the setting of a viral process. IMPRESSION: 1. No significant stenosis, occlusion, or aneurysm within the bilateral ACAs, MCAs, or workday senior associate. 2. Mild stenosis within the right supraclinoid ICA due to the calcified plaque. 3. Focal severe stenosis within the distal right vertebral artery due to the calcified plaque and focal mild stenosis within the distal left vertebral artery. 4. No significant stenosis, occlusion, or dissection within the bilateral common carotid or internal carotid arteries. ACT 112: Negative or not required by law. Electronically signed by: Casimiro Soto M.D. 02/19/2021 5:28 PM Neck CTA 02/19/21 17:04 HEAD & NECK CTA HISTORY: Stroke Like Symptoms TECHNIQUE: Multiaxial CT images of the head were performed following the intravenous administration of contrast to evaluate the major cerebral vessels. Multiaxial CT images of the neck were also performed following the intravenous administration of contrast to evaluate the major cervical vessels. Maximum intensity projection images were also obtained. A dose lowering technique was utilized adhering to the principles of ALARA. COMPARISON: None. FINDINGS: Moderate calcified plaque within the bilateral distal vertebral arteries resolving and mild stenosis within the distal left vertebral artery and severe stenosis within the distal right vertebral artery. The basilar artery is widely patent. Mild stenosis within the right supraclinoid ICA due to the focal calcified plaque. No significant stenosis within the left intracranial ICA. The bilateral ACAs, MCAs, workday senior associate show no significant stenosis, occlusion, or aneurysm. The major dural venous sinuses appear patent. The aortic arch and proximal great vessels are widely patent. There is no significant stenosis, occlusion, or dissection identified within the bilateral common carotid, internal carotid, or vertebral arteries. Mild interlobular septal thickening and small patchy groundglass airspace opacities most pronounced within the right upper lobe. There are also small to moderate bilateral pleural effusions. This favors pulmonary edema. Groundglass airspace opacities, also be seen in the setting of a viral process. IMPRESSION: 1. No significant stenosis, occlusion, or aneurysm within the bilateral ACAs, MCAs, or workday senior associate. 2. Mild stenosis within the right supraclinoid ICA due to the calcified plaque. 3. Focal severe stenosis within the distal right vertebral artery due to the calcified plaque and focal mild stenosis within the distal left vertebral artery. 4. No significant stenosis, occlusion, or dissection within the bilateral common carotid or internal carotid arteries. ACT 112: Negative or not required by law. Electronically signed by: Casimiro Soto M.D. 02/19/2021 5:28 PM Duplex Scan Upper Extremity Artery 02/20/21 10:00 ULTRASOUND RIGHT UPPER EXTREMITY ARTERIAL CLINICAL HISTORY: Decreased radial pulses. Cold upper extremity. COMPARISON STUDY: No priors. TECHNIQUE: Real-time grayscale and color Doppler sonography of the arteries of the right upper extremity is performed. FINDINGS: The arteries of the right upper extremity are patent and show normal arterial waveforms. Velocities in the right common carotid artery measure up to 83 cm/s. The right vertebral artery is patent with normal direction of flow and velocities measuring up to 50 cm/s. The right subclavian artery is patent with velocities measuring up to 92 cm/s. The axillary and brachial arteries are patent with normal arterial waveforms and velocities measuring up to 92 cm/s. The radial and ulnar arteries are patent with velocities measuring up to 86 cm/s. Calcified plaque is noted. IMPRESSION: There is no sonographic evidence of high-grade stenosis or focal vessel cut off seen throughout the arteries of the right upper extremity. Electronically signed by: Omid Noel M.D. 02/20/2021 3:09 PM Chest X-Ray 02/20/21 11:06 XR chest 2V PA/lateral HISTORY: Shortness of breath. COMPARISON: None. FINDINGS: No pneumothorax. Trace bilateral pleural effusions. The heart is mildly enlarged. There is diffuse interstitial and vascular thickening consistent with pulmonary edema. Increased markings at the lung bases favors atelectasis from the pleural effusions. Otherwise, no focal lung consolidations to suggest pneumonia. IMPRESSION: Cardiomegaly, trace bilateral pleural effusions, and mild to moderate pulmonary edema. ACT 112: Negative or not required by law. Electronically signed by: Casimiro Soto M.D. 02/20/2021 12:13 PM Brain MRI 02/20/21 21:59 Brain MRI WITH AND WITHOUT CONTRAST HISTORY: Right hand weakness. Possible stroke. TECHNIQUE: Multiplanar multisequence MRI of the brain was performed both before and after the intravenous administration of contrast. COMPARISON STUDY: Head CT 03/08/2021. FINDINGS: There is a 2.2 x 1.0 cm focus of restricted diffusion within the left precentral gyrus consistent with an acute infarct. The midline structures are intact. There is associated cytotoxic edema at the site of infarct. The ventricles and sulci demonstrate mild age-related involutional changes. There is no mass, hematoma, midline shift. The major vascular flow voids at the skull base are well-maintained. The paranasal sinuses and mastoid air cells are clear. Mild periventricular white matter T2 hyperintensity is nonspecific but favors microvascular ischemic change. Postcontrast sequences show no areas of abnormal enhancement. IMPRESSION: A small acute infarct within the left precentral gyrus at the high convexity. ACT 112: Negative or not required by law. Electronically signed by: Casimiro Soto M.D. 02/20/2021 12:05 PM Echocardiogram: * Left ventricle moderately dilated * EF 20-25% * severe global hypokinesis of left ventricle * inferior wall akinesis * mild-moderate pulmonic regurgitation * moderate mitral regurgitation * moderate pulmonary HTN (40-50mmHg) * large pleural effusion * inferior vena cava severely dilated Hospital Course (1) Acute systolic CHF (congestive heart failure): Patient presented with severe volume overload. Had had significant cough, wheezing, and dyspnea back home in the [facility] as well as during his travels to [place]. This was all due to new-onset CHF, not acute bronchitis. Etiology of acute systolic CHF was uncertain. Does appear to have areas of akinesis in the inferior wall on echocardiogram which may suggest underlying CAD. No prior h/o tachyarrhythmias. No h/o autoimmune disease. Has never had COVID to his knowledge. No excessive etoh use. Regardless of etiology he was aggressively diuresed while here with IV lasix. He was started on metoprolol xl 25mg daily. He had been taking lisinopril prior to this admission but it was stopped to allow more room in blood pressure given the need for beta blockade and diuresis. The LOY will ultimately need to be resumed OR he should be started on Entresto. Defer to his providers back home in [place]. With the above measures he symptomatically improved. Discharge weight was 107.5 kg. His echo and imaging studies were placed on CD for him to carry back to [place]. At discharge he will continue the metoprolol xl 25mg daily, lasix 40mg BID, K & mag supplementation, asa, and eliquis (see below). He was seen in consult by [facility], Dr Sage Mckenzie. Cardiac catheterization was advised upon return to the [facility] to exclude ischemia/CAD as the cause of his cardiomyopathy. At discharge he was counseled on the importance of daily weights, salt restriction, and fluid restriction. Dedicated CHF instructions were given to him at discharge as well. (2) Cardiomyopathy: akinesis inferior wall on echo - coupled with CAD risk factors - may suggest ischemia/CAD as cause of his cardiomyopathy. will ultimately need cardiac cath in near-future to r/o such. see "acute systolic CHF" above. (3) Cerebrovascular accident: Small stroke seen on MRI brain, with DWI images showing stroke in the high frontal region on left c/w his right hand weakness. Suspect the etiology of his stroke is cardioembolic in the setting of severely depressed LV function. He was seen in consult by Dr Redd Webster, [facility]. He advised asa, eliquis, and statin use at discharge. Eliquis was recommended due to the high concern his CVA was cardioembolic from the acute systolic CHF. Seen by Pt/Ot - strengthening exercises were shown to patient while here. (4) Right hand weakness: 2nd to left frontal lobe stroke. Cardioembolic etiology suspected in light of severely depressed LV function. See above. (5) Elevated troponin: Likely myocardial demand ischemia in setting of acute CHF, YANELIS, etc. Unlikely to be ACS. No typical symptoms for such. [id number] he will need a cath in the near-future to r/o ischemia as cause of his cardiomyopathy. Peak troponin was 0.349. (6) Diabetes: HbA1C 7.2%. Cont lantus 40 units HS at discharge. (7) Hypertension: Held LOY in setting of YANELIS as well as his acute CVA and need for beta blockade. This will likely need to be resumed upon return to [place]. (8) Hyperlipidemia: LDL 34 on lipid profile this admission. HDL 36. Cont simvastatin 40mg daily. (9) Elevated serum creatinine: uncertain baseline. Presenting creatinine was 1.8. Creatinine improved to 1.39 with diuresis. Advise repeat bmp upon return to [place] for stability. Total Time Total Time Spent Total Time Spent (In Minutes): 50 Total Time Includes: Examination of the Patient, Discharge Planning, Medication Reconciliation and Communication With Other Providers Discharge Plan Discharge Items Patient Disposition: Home - Self-Care Reason For Visit: Concern for stroke Discharge Diagnosis: 1. stroke of left frontal lobe of the brain causing right hand and right wrist weakness 2. newly-diagnosed systolic congestive heart failure (cardiomyopathy); ejection fraction 20-25% (normal ~60-65%) 3. concern for coronary artery disease - heart catheterization needed upon return to [place] 4. elevated creatinine (kidney number) - likely due to #2 - improved; discharge creatinine level 1.3, down from 1.8 5. COVID-19 NEGATIVE Activity: As commented below Activity Comment: no heavy exertional activities until seen by your family doctor Sexual Activity: Wait until after follow-up appointment Exercise/Sports: Wait until after follow-up appointment Driving/Machine Use: no driving until cleared by your family doctor Non-emergency contact: Primary Care Provider Call non-emergency contact if: you have any medication questions, your symptoms worsen and you have a fever Follow-up/Referrals: EDUARDO LAU [Other] (other phone - [phone]; please call Dr Lau first thing on Tuesday to schedule follow-up EARLY this week.) Diet: Low Sodium (2gm) Fluids: 1800ml (7 cups) Addtl Attending Provider Instructions: Mr Hernandez, You were admitted to [facility] and treated for the conditions listed above in "discharge diagnoses." We ultimately discovered that your right hand/wrist weakness was due to a small stroke in the left side of the brain. We believe that a small blood clot may have traveled from within the heart to the brain causing your stroke. While doing investigation for your stroke we performed a heart ultrasound ("echocardiogram") which was very abnormal. It showed that you have congestive heart failure. Your heart's pumping ability is markedly reduced. The exact cause of the heart failure is uncertain at this time. Your ejection fraction was 20-25% on the echocardiogram (severe dysfunction of the heart pumping ability). Causes of congestive heart failure including coronary artery disease (blocked arteries of the heart - the process which can lead to heart attack), recent viral infections (COVID can do this, but your COVID test was negative), hereditary conditions, excessive alcohol use, vitamin deficiencies, and other etiologies. You will need to have a "heart catheterization" upon return home to [place] to check for clogged coronary arteries. We gave you IV lasix (furosemide) and your fluid retention and symptoms improved quickly. Dr Sage Mckenzie from [facility] saw you in consult. At this time we recommend the following - 1. metoprolol succinate 25mg once daily; start AM of 02/22/21. 2. furosemide 40mg twice daily; take each morning about 8am, and every afternoon about 4pm. 3. take a potassium and magnesium supplement each morning. 4. 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 5. STOP your metformin until you see your family doctor; your family doctor will need to repeat your blood work for your kidneys and, if your kidney number is ok , you can ultimately resume the metformin in the future. 6. WOULD PERMANENTLY stop the actos. 7. STOP the antibiotics and prednisone; your respiratory symptoms were from congestive heart failure, not bronchitis. 8. START eliquis 5mg twice daily to thin your blood. We are providing 4 tablets of this until you return home and get the eliquis filled at [facility]. Take your first dose TONIGHT. 9. START baby aspirin 81mg once daily. Purchase [id number]. 10. DAILY WEIGHTS - see below. 11. Salt restriction -- no more than 2000mg in 24 hours. Fluid restriction -- no more than 1800cc in 24 hours. This is EVERYTHING you drink - not just water. 12. Call your family doctor on Tuesday to schedule follow-up for EARLY this week. It was our pleasure caring for you at [facility]! Safe travels and feel better, -Dr Elmer Manrique Senior Clinical Data Analyst Provider Instructions: CONGESTIVE HEART FAILURE INSTRUCTIONS: Call 911 and go to the Emergency Room if: * You have tightness or pain in your chest that does not go away with rest or Nitroglycerin * You are very short of breath even with rest Call your doctor if any of the following symptoms or problems start or get worse: * Shortness of breath or difficulty breathing * Wake up at night short of breath * Chest pain * Cough * Swelling of your hands, fee, or legs * More fatigued or tired with your normal activity * Palpitations - sudden fast heart beats WEIGHT * Weigh yourself every morning after using the bathroom. Your weight at discharge is 236.5 pounds. We will need to determine your "dry weight" over time. * Use the same scale. * Wear the same amount of clothing. * Write your weight down on your chart. * Call your doctor if you gain more than 2-3 pounds in 1-2 days. This is usually the first sign of fluid retention from your congestive heart failure. Do not delay - better to call your doctor early rather than waiting* MEDICATIONS * Use this discharge instruction sheet for instructions. * Take your medications at the time your doctor ordered. * Do not skip a dose of your medicines. * If you miss a dose of medicine, take as soon as possible, but DO NOT DOUBLE A DOSE. * Read your medicine information when you get home. * Know all of the side effects of your medicine. * Call your doctor's office if you have any side effects. * Be sure all of your doctors know what medicine and herbs you take (including cold, flu, and herbal medicine). * Pain Medicine: If you do not get relief from your pain, please call your doctor for help. Take the following with you to your follow-up doctor appointments: * Weight Chart * Medication List * List of questions Do not drink excessive alcohol, beer or wine. STROKE INSTRUCTIONS: Risk Factors for Stroke: You can reduce your chances of stroke by working with your medical provider to adopt a healthy lifestyle. Some specific ways to lower your chance of stroke are: * If you are a smoker, now is the time to stop smoking cigarettes * If you are diabetic, improve the control of your blood sugars * Avoid excessive amounts of alcohol * Control high blood pressure * Lose weight if you are overweight * Be sure to lead an active lifestyle * Eat a healthy diet low in salt, cholesterol and fat You should know about other risk factors for stroke that you are unable to control. These include: * Age 55 years or older * Male gender * Certain racial groups: , or / * Family History of Stroke, Mini stroke or Heart Attack * Sickle Cell Disease Who to Call and When: Medical Emergencies: Call 911 immediately if you experience any of the following warning signs and symptoms of Stroke: * Sudden numbness or weakness of the face, arm or leg, especially on one side of the body * Sudden confusion, trouble speaking or understanding * Sudden trouble seeing in one or both eyes * Sudden trouble walking, dizziness, loss of balance or coordination * Sudden severe headache with no cause Do not delay calling 911 if you experience any warning signs or symptoms of a stroke. Delay in seeking medical attention may affect what treatments can be given to you. . Anticoagulation (blood thinner) instructions: Your stroke is being treated with an anticoagulant. Anticoagulants will thin your blood to help prevent new clots and hence another stroke. Your blood thinner is "ELIQUIS." * You should take your medication exactly as directed. * Never skip a dose. * Never take a double dose. If you miss a dose, take it as soon as you remember. Call your Primary Care doctor if you experience any of the following: * Chest Pain * Sudden Shortness of Breath * Rapid or pounding heart beat * Fainting * Dizziness * Cough with blood or bloody sputum * Sweating more than normal * Bruises * Heavy or uncontrolled bleeding * Blood in your urine, stool or vomit * Black or tarry stools * Heavy nose bleeding Caring for Your Self at Home: * Know that if you get a cut on your skin it will bleed more than usual due to the blood thinner * You may have more bruises with minor injury in comparison to the past * When shaving use an electric shaver in froilan of a traditional razor Pending Studies at Discharge: No Stand-Alone Forms: [facility], Smoking Cessation Medications and DC Order Prescriptions: New aspirin 81 mg Tablet,Delayed Release (Dr/Ec) 81 mg PO QAM Qty: 90 RF: 0 potassium chloride [Klor-Con M20] 20 mEq Tablet,Er Particles/Crystals 20 meq PO DAILY Qty: 30 RF: 1 magnesium oxide 400 mg (241.3 mg magnesium) Tablet 400 mg PO DAILY Qty: 30 RF: 1 metoprolol succinate 25 mg Tablet Extended Release 24 Hr 25 mg PO QAM Qty: 30 RF: 1 Eliquis 5 mg Tablet 5 mg PO BID Qty: 60 RF: 1 furosemide [Lasix] 40 mg Tablet 40 mg PO BID Qty: 60 RF: 1 Continued simvastatin 40 mg Tablet 40 mg PO HS RF: 0 albuterol sulfate 90 mcg/actuation Hfa Aerosol Inhaler 1 - 2 puff INHALATION Q4H PRN (Reason: Shortness Of Breath Or Wheezing) RF: 0 Lantus Solostar U-100 Insulin 100 unit/mL (3 mL) Insulin Pen 40 unit SUBCUT QPM RF: 0 Discontinued pioglitazone [Actos] 15 mg Tablet 15 mg PO DAILY RF: 0 prednisone 10 mg Tablet See Rx Instructions .ROUTE .COMPLEX RF: 0 azithromycin 250 mg Tablet 250 mg PO DAILY RF: 0 metformin 1,000 mg Tablet 1,000 mg PO BIDM RF: 0 lisinopril 40 mg Tablet 40 mg PO DAILY RF: 0 amoxicillin-pot clavulanate [Augmentin] 875-125 mg Tablet 1 tab PO BID RF: 0 Discharge Orders: Discharge Order (Routine); Ordered 02/21/21 Ordered By: Jones Gillespie/Other Patient Handouts: What Is Heart Failure, Heart Failure Signs of Flare-Up, Heart Failure: Tracking Your Weight, Managing Type 2 Diabetes, Medicines for Cardiomyopathy, A1C Admission Data Admit Date/Time: 02/19/21 20:09 Attending Provider: Jones Payne Admit Provider: Claribel Corea Primary Care Provider: Eduardo Lau Other Providers: Claribel Corea ; Gracia Frank ; Aamir Mckenzie Other Interventions: Discharge Summary Assessment (RN) Last Done: 02/21/21 14:22 Coding Level of Care Code D/C Day Management >30 mins Diagnoses Acute systolic CHF (congestive heart failure) I50.21 Cardiomyopathy I42.9 Cardiomyopathy type: unspecified Cerebrovascular accident I63.9 CVA mechanism: unspecified Right hand weakness R29.898 Elevated troponin R77.8 Diabetes E11.9; Z79.4 Diabetes mellitus complication status: without complication Diabetes mellitus shelter insulin use: with shelter use Diabetes mellitus type: type 2 Hypertension I10 Hypertension type: essential hypertension Hyperlipidemia E78.2 Hyperlipidemia type: mixed hyperlipidemia Elevated serum creatinine R79.89
== END 2021-02-21 15:23 | disposition home or self-care (01) | DRG 64 ==
LOC: ED 16:33 → 2N 20:09 → SUATTDRO 20:09 → 2N 21:37 → 2W 02-20 01:02